=== PATIENT | female | born 1960 | race Caucasian/White ===

== ENCOUNTER 2020-07-01 11:27 | Day surgery (SDC) | payer MEDICARE, MEDICAID, SELFPAY ==
[2020-06-25 16:22] VITALS: BMI 24.1
--- NOTE | 2020-06-30 09:37 | HO.ANESPROP2 ---
Documented by User: Lori Rosey 06/30/20 09:57 HPI - Anesthesia Eval Consult details Narrative: 59yo F for Colonoscopy PMFSH Past Medical History Medical History Agoraphobia Anxiety Asthma Bipolar 1 disorder, depressed Constipation COPD (chronic obstructive pulmonary disease) DDD (degenerative disc disease), cervical DDD (degenerative disc disease), thoracic GERD (gastroesophageal reflux disease) Hiatal hernia HTN (hypertension) Hx of hepatitis C Mild aortic regurgitation Smoker Surgical History Surgical History History of ankle surgery History of breast augmentation History of cardiac cath History of esophagogastroduodenoscopy (EGD) Hx of colonoscopy Hx of hysterectomy Social History Social History Are you a primary healthcare science specialist to a significant other at home: No Do you presently have visiting nurse or other home services: No Smoking Status: Heavy tobacco smoker Packs Per Day: 1.5 Cigarettes Per Day: 30.0 Years Smoked: 44 Smoked in Last 30 Days: Yes Patient Interested in Nicotine Replacement: Yes Patient Given Instructions on How to Stop Smoking: Yes Date Education Initiated: 06/25/20 Use of substances other than those prescribed or required for medical reasons: No Have you been hit, kicked, punched, or otherwise hurt by someone within the past year? If so, by whom?: No Advance Directives: No Advance Directives Information Provided: No Advance Directives on File: No Recently lost weight without trying: No Meds Allergies Allergy/AdvReac Type Severity Reaction Status Date / Time baclofen [BACLOFEN] Allergy Unknown felt Verified 07/01/20 11:43 wierd Did not work morphine [MORPHINE] Allergy Unknown THROAT Verified 07/01/20 11:44 CLOSES, anaphylaxis hydrocodone [From VICODIN] AdvReac Unknown N/V, Verified 07/01/20 11:44 palpitations Home Medications Medication Instructions Recorded Confirmed Type albuterol sulfate 1 vial INHALATION Q6H 06/25/20 06/25/20 History albuterol sulfate [Ventolin HFA] 2 puff PO Q4-6H PRN 06/25/20 06/25/20 History amlodipine 1 tab PO DAILY 06/25/20 06/25/20 History aspirin 1 tab PO DAILY 06/25/20 06/25/20 History carisoprodol 1 tab PO TID 06/25/20 06/25/20 History clonazepam 1 tab PO BID PRN 06/25/20 06/25/20 History desvenlafaxine succinate 1 tab PO DAILY 06/25/20 06/25/20 History docusate sodium [Dulcolax Stool 100 mg PO DAILY PRN 06/25/20 06/25/20 History Softener (dss)] fexofenadine 1 tab PO DAILY 06/25/20 06/25/20 History fluticasone propion-salmeterol 1 puff PO 06/25/20 History [Advair HFA] fluticasone propionate [Flovent 1 puff PO BID 06/25/20 06/25/20 History HFA] lamotrigine 1 tab PO BID 06/25/20 07/01/20 History montelukast 1 tab PO BEDTIME 06/25/20 06/25/20 History wuidvffm-tbb-rutb-FA-lutein 1 tab PO DAILY 06/25/20 06/25/20 History [Centrum Silver Women] nicotine (polacrilex) mg PO 06/25/20 History omeprazole 1 cap PO BID 06/25/20 06/25/20 History oxycodone 1 tab PO BID PRN 06/25/20 06/25/20 History pramipexole 1 tab PO TID PRN 06/25/20 06/25/20 History quetiapine [Seroquel] 25 mg PO DAILY PRN 06/25/20 06/25/20 History topiramate 2 tab PO BEDTIME 06/25/20 06/25/20 History trazodone 1 tab PO BEDTIME 06/25/20 06/25/20 History Exam Exam Date and Time: June 30, 2020 0937 Height,Weight and Vital Signs: Height 5 ft 5 in Weight 65.771 kg Narrative Narrative: EKG 2018: NSR ECHO 02/2020: nml, mild AR Assessment and Plan Assessment Anesthesia Assessment: Chart Reviewed Documented by User: Ayala Carrasco 07/01/20 12:12 [facility] Past Medical History Medical History Agoraphobia Anxiety Asthma Bipolar 1 disorder, depressed Constipation COPD (chronic obstructive pulmonary disease) DDD (degenerative disc disease), cervical DDD (degenerative disc disease), thoracic GERD (gastroesophageal reflux disease) Hiatal hernia HTN (hypertension) Hx of hepatitis C Mild aortic regurgitation Smoker Surgical History Surgical History History of ankle surgery History of breast augmentation History of cardiac cath History of esophagogastroduodenoscopy (EGD) Hx of colonoscopy Hx of hysterectomy Social History Social History Are you a primary healthcare science specialist to a significant other at home: No Do you presently have visiting nurse or other home services: No Smoking Status: Heavy tobacco smoker Packs Per Day: 1.5 Cigarettes Per Day: 30.0 Years Smoked: 44 Smoked in Last 30 Days: Yes Patient Interested in Nicotine Replacement: Yes Patient Given Instructions on How to Stop Smoking: Yes Date Education Initiated: 06/25/20 Use of substances other than those prescribed or required for medical reasons: No Have you been hit, kicked, punched, or otherwise hurt by someone within the past year? If so, by whom?: No Advance Directives: No Advance Directives Information Provided: No Advance Directives on File: No Recently lost weight without trying: No Meds Allergies Allergy/AdvReac Type Severity Reaction Status Date / Time baclofen [BACLOFEN] Allergy Unknown felt Verified 07/01/20 11:43 wierd Did not work morphine [MORPHINE] Allergy Unknown THROAT Verified 07/01/20 11:44 CLOSES, anaphylaxis hydrocodone [From VICODIN] AdvReac Unknown N/V, Verified 07/01/20 11:44 palpitations Home Medications Medication Instructions Recorded Confirmed Type albuterol sulfate 1 vial INHALATION Q6H 06/25/20 06/25/20 History albuterol sulfate [Ventolin HFA] 2 puff PO Q4-6H PRN 06/25/20 06/25/20 History amlodipine 1 tab PO DAILY 06/25/20 06/25/20 History aspirin 1 tab PO DAILY 06/25/20 06/25/20 History carisoprodol 1 tab PO TID 06/25/20 06/25/20 History clonazepam 1 tab PO BID PRN 06/25/20 06/25/20 History desvenlafaxine succinate 1 tab PO DAILY 06/25/20 06/25/20 History docusate sodium [Dulcolax Stool 100 mg PO DAILY PRN 06/25/20 06/25/20 History Softener (dss)] fexofenadine 1 tab PO DAILY 06/25/20 06/25/20 History fluticasone propion-salmeterol 1 puff PO 06/25/20 History [Advair HFA] fluticasone propionate [Flovent 1 puff PO BID 06/25/20 06/25/20 History HFA] lamotrigine 1 tab PO BID 06/25/20 07/01/20 History montelukast 1 tab PO BEDTIME 06/25/20 06/25/20 History aiwhugfm-pyg-dyib-FA-lutein 1 tab PO DAILY 06/25/20 06/25/20 History [Centrum Silver Women] nicotine (polacrilex) mg PO 06/25/20 History omeprazole 1 cap PO BID 06/25/20 06/25/20 History oxycodone 1 tab PO BID PRN 06/25/20 06/25/20 History pramipexole 1 tab PO TID PRN 06/25/20 06/25/20 History quetiapine [Seroquel] 25 mg PO DAILY PRN 06/25/20 06/25/20 History topiramate 2 tab PO BEDTIME 06/25/20 06/25/20 History trazodone 1 tab PO BEDTIME 06/25/20 06/25/20 History Exam Airway Mallampati Class: I TM Dist: >3cm Heart: RRR Lungs: CTA BL Assessment and Plan Assessment Anesthesia Assessment: Anesthesia Plan Discussed and Chart Reviewed Final Anesthetic Review NPO: Yes ASA Class: II Final Preanesthetic Review: No Changes in Pt Med Stat and Consent Obtained/Reviewed Patient Risk: Intermediate Procedure Risk: Intermediate Anesthetic Plan Anesthetic Plan: MAC: Disposition: Standard PACU
[2020-07-01 11:50] VITALS: BP 116/81; PULSE 68; RESP 16; TEMP 36.2; O2SAT 97
--- NOTE | 2020-07-01 12:05 | PC.NURSE ---
patient had a bm and nothing noted in toilet. clear. md horn aware. no need for a fleet enema.
--- NOTE | 2020-07-01 12:08 | MHC.SHP ---
Pre-Procedural Eval Section B Chief Complaint: SCREENING Details of Present Illness: Colon cancer screening Has seen Flight Communications Officer this summer --ECHO-no changes Continues to smoke 1-2 ppd Relevant Family History (Specify if Yes): No Relevant Social History: Tobacco Use (1.5 ppd) Present Medications: see Short Stay Collaborative assessment Medical History: Significant History (COPD/asthma, chronic bronchitis,GERD, Bipolar disorder) History of Previous Operations: Relevant previous surgery/procedure and date(s) (Colonoscopy--tubular adenoma.) Allergies: Allergies Allergy/AdvReac Type Severity Reaction Status Date / Time baclofen [BACLOFEN] Allergy Unknown felt Verified 07/01/20 11:43 wierd Did not work morphine [MORPHINE] Allergy Unknown THROAT Verified 07/01/20 11:44 CLOSES, anaphylaxis hydrocodone [From VICODIN] AdvReac Unknown N/V, Verified 07/01/20 11:44 palpitations Review of Systems Sugical H&P ROS: Negative: Constitution and Gastrointestinal and Yes, Specify: Cardiovascular (stable heart valve-md analilia), Respiratory (sligh prod cough) and Psychiatric (hx bipolar disorder on meds.) Exam Surgical H&P Exam: Normal: HEENT, Normal: Heart, Normal: Abdomen and Normal: Skin and Significant Findings: Lungs (bronchitic cough) Plan Diagnosis/Plan: Unchanged Patient has been examined and remains a candidate for the planned procedure YES
[2020-07-01] MEDS: Lactated Ringers 1,000 ML 100 ML IVCONT (12:11)
--- NOTE | 2020-07-01 12:40 | PM.PROC ---
Brief Operative Note Date of procedure: 07/01/20 Pre-op diagnosis: Colon cancer screening Post-op diagnosis: other (hx of tubular adenomas, melanosis coli) Procedure: Colonoscopy Anesthesia: MAC (Irving Tomlin CRNA) Surgeon: Kristina Robledo Estimated blood loss (mL): 0 Pathology: none sent Condition: stable Disposition: PACU
[2020-07-01 12:43] VITALS: BP 91/49; PULSE 52; RESP 12; TEMP 36.1; O2SAT 96
[2020-07-01 12:58] VITALS: BP 94/54; PULSE 60; RESP 18; O2SAT 99
--- NOTE | 2020-07-01 13:18 | PC.NURSE ---
1300 REQ TO USE BR STS FEEL GREAT MONITORS AND IVF DC'D TOTAL IN IS 350 ML LR, ASST OOB STEADY TO BR, RETURN TO PACU 13 STEADY IV DC'D TIP INTACT PRESSURE AND DRESSING TO SITE, DRESSED SELF AT BS CALL ZHAO IN REACH
--- NOTE | 2020-07-01 13:59 | OP_ITS ---
SURGEON: Kristina Robledo MD PREOPERATIVE DIAGNOSIS: History of tubular adenomas. POSTOPERATIVE DIAGNOSIS: Negative exam, presence of melanosis coli noted, history of tubular adenomas. PROCEDURE PERFORMED: Colonoscopy. ESTIMATED BLOOD LOSS: No blood loss. COMPLICATIONS: No complications. ANESTHESIA: Monitored. ANESTHESIOLOGIST: Irving Tomlin CRNA. ASSISTANTS: No lpn medical assistant. SPECIMENS: No specimens removed. PRIMARY CARE PROVIDER: Dr. Posadas CLIENT RELATIONSHIP CONSULTANT: Dr. Robledo. CONDITION: Postprocedure, stable. FINDINGS: Digital rectal exam revealed sphincter tone to be adequate. Video colonoscope was introduced without difficulty. It was navigated into the rectosigmoid. There were scattered white fragments of knots, which on further investigation appear to be a threads of pecan throughout the colon. There was residual turbid fluid as well that was present making exam of certain areas somewhat tedious. Scope was slowly advanced through mildly redundant left colon and up through transverse, ascending colon down into the cecum. Appendiceal orifice was seen. Ileocecal valve was seen. No mucosal abnormalities were appreciated. Slow withdrawal of the scope. Good rotational views. In various sliding, there was presence of melanosis coli noted. As we pulled through the left colon, there was some tedious areas requiring some flushing and suctioning due to the turbidity of the residue ultimately down to the anorectal verge. PLAN: Current recommendations to repeat asymptomatic screening in this patient will be 5 years. The patient should be reminded at that time to have no knots for the week prior to the procedure. Consideration to a 2-day prep with the day prior to the preparation, the patient is being given either 2 Dulcolax tabs to use or several doses of MiraLAX and then the formal prep with clear liquids on the day prior to the procedure. GRAFT OR IMPLANTS: No grafts or implants. Kristina Robledo MD MEN/MODL / [id number] MTDD
== END 2020-07-01 13:38 | disposition home or self-care (01) ==
PROVIDERS: PCP Internal Medicine; Visit Provider Internal Medicine Gastroenterology
PROC: 0DJD8ZZ Inspection of Lower Intestinal Tract, Via Natural or Artificial Opening Endoscopic (ICD-10-PCS; CPT 45378; principal; 2020-07-01 12:30)
DX: Z12.11 Encounter for screening for malignant neoplasm of colon (principal); Z86.010 Personal history of colon polyps; K63.89 Other specified diseases of intestine; K21.9 Gastro-esophageal reflux disease without esophagitis; I10 Essential (primary) hypertension; J44.9 Chronic obstructive pulmonary disease, unspecified; I35.1 Nonrheumatic aortic (valve) insufficiency; F17.210 Nicotine dependence, cigarettes, uncomplicated; F31.9 Bipolar disorder, unspecified; Z88.8 Allergy status to other drugs, medicaments and biological substances; Z79.51 Long term (current) use of inhaled steroids; Z79.82 Long term (current) use of aspirin; Z79.899 Other long term (current) drug therapy; Z86.19 Personal history of other infectious and parasitic diseases
CPT/HCPCS: G0105

== ENCOUNTER 2020-10-29 10:44 | Outpatient (REF) | payer MEDICARE, MEDICAID, SELFPAY ==
--- NOTE | ~2020-10-29 | MM_ITS ---
EXAMINATION: BONE DENSITOMETRY CLINICAL INDICATION: Screening for osteoporosis. COMPARISON: Baseline BD dated 08/05/2017. TECHNIQUE: Using a [employer] DXA System (software version: 13.1) manufactured by [employer], dual-energy x-ray absorptiometry was performed of the lumbar spine and left hip. The images are of good technical quality. Summary results are attached. FINDINGS: AP SPINE L1-L4: Current: BMD 0.933 g/cm2, Z-score -1.0, T-score -2.1, osteopenia, 4.0% decrease from baseline (<5% change is not significant). Baseline: BMD 0.972 g/cm2. LEFT FEMUR, NECK: Current: BMD 0.836 g/cm2, Z-score -0.3, T-score -1.5, osteopenia. Baseline: BMD 0.874 g/cm2. LEFT FEMUR, TOTAL: Current: BMD 0.899 g/cm2, Z-score 0.0, T-score -0.9, normal, 3.2% decrease from baseline (<5% change is not significant). Baseline: BMD 0.929 g/cm2. IDENTIFIED RISK FACTORS: Low calcium intake, history of fracture (adult). Early menopause, secondary osteoporosis, kidney disease, tobacco use (current smoker), hysterectomy. HISTORY OF FRACTURE: Lower leg fracture. No insufficiency fracture reported. MEDICATIONS: Calcium supplements or multivitamin, vitamin D. MM/XR DEXA axial skeleton IMPRESSION: 1. DIAGNOSIS: Osteopenia based on the lowest T-score value of -2.1 in the lumbar spine applying World Health Organization criteria. 2. 10-YEAR FRACTURE RISK PREDICTION, FRAX: Major osteoporotic fracture (clinical spine, forearm, hip or shoulder) 13.4%. Hip fracture 2.0%. 3. Treatment Recommendations: NOF guidelines recommend consideration for treatment in postmenopausal women and men age 50 and older presenting with the following: -A hip or vertebral (clinical or morphometric) fracture. -T-score less than or equal to -2.5 at the femoral neck or spine after appropriate evaluation to exclude secondary causes. -Low bone mass at the hip or spine and a 10-year fracture probability by FRAX of greater than or equal to 3% for hip fracture or greater than or equal to 20% for major osteoporotic fracture based on the [place] adapted WHO algorithm. 4. Other Recommendations: All treatment decisions require clinical judgment and consideration of individual patient factors, including patient preferences, comorbidities, previous drug use, risk factors not captured in the FRAX model (e.g. frailty, falls, vitamin D deficiency, increased bone turnover, interval significant decline in bone density) and possible under or overestimation of fracture risk by FRAX. Additional medical evaluation for secondary cause of low bone mineral density may be appropriate. FUTURE SCAN RECOMMENDATION: People with diagnosed cases of osteoporosis or at high risk for fracture should have regular bone mineral density tests. For patients eligible for Medicare, routine testing is allowed once every 2 years. The testing frequency can be increased to one year for patients who have rapidly progressing disease, those who are receiving or discontinuing medical therapy to restore bone mass, or have additional risk factors.
== END 2020-10-29 10:45 | disposition home or self-care (01) ==
LOC: HO.MAMMO 10:44
PROVIDERS: PCP Advanced Practice Midwife; Visit Provider Advanced Practice Midwife
DX: Z13.820 Encounter for screening for osteoporosis (principal); M85.89 Other specified disorders of bone density and structure, multiple sites; Z78.0 Asymptomatic menopausal state; Z90.710 Acquired absence of both cervix and uterus
CPT/HCPCS: 77080

== ENCOUNTER → 2020-11-13 07:59 | Outpatient (REF) | payer MEDICARE, MEDICAID, SELFPAY ==
--- NOTE | ~2020-11-13 | NM_ITS ---
Lexiscan Myocardial perfusion study Indication: Shortness of breath, abnormal EKG, assess for coronary disease and ischemia Technique: The patient was brought in for a Lexiscan perfusion study on 11/13/2020 and was injected 0.4 mg of Lexiscan intravenously. Within a minute of this injection 25 mCi of sestamibi was given intravenously. Images were obtained using the SPECT gamma camera interlaced with the gating device. Images were obtained in supine position. Resting perfusion study was performed on 11/14/2020. Patient was administered 25 mCi of sestamibi intravenously at rest. Images were then obtained in supine position. Total DLP 101mGy-cm. Images were processed with the software and compared side to side in short axis, horizontal long axis and vertical long axis views. Findings: Raw acquisition was reviewed. Arms by the patient's side. The stress perfusion study showed slightly diminished tracer uptake in the mid to distal anterolateral wall. With CT attenuation correction this improves significantly suggestive of soft tissue attenuation artifact. The gated study shows normal LV systolic function with calculated LVEF of 62%. LV cavity is normal in size. The gated study shows normal wall thickening and contraction of segments. Resting study shows mildly diminished tracer uptake in the basal inferior septum. Likely artifactual as there is adjacent bowel tracer uptake. There is no significant change with CT attenuation correction however. Gating at rest reveals normal wall motion with ejection fraction at 72%. The findings are consistent with no definite reversible or fixed perfusion defects. NM/NM donny perf SPECT rest & str Impression: 1. Myocardial perfusion imaging study shows no definite evidence of any ischemia or infarction. 2. Gated LVEF is 62% during stress and 72% during rest. 3. Transient ischemic dilatation not present. EKG component of the test reported separately.
--- NOTE | 2020-11-13 08:00 | CA_ITS ---
Acquisition Time: 2020-11-13 08:13:24 Total Exercise Time: 00:02:00 Test Indications: Dyspnea Medications: SEE H Protocol: LEXISCAN Max HR: 110 BPM 68% of Pred: 161 BPM Max BP: 128/074 mmHG Max Work Load: 1.0 METS Pharmacological stress test using Lexiscan while sitting and kicking her feet. Pt denies any anginal sx. C/o headache from Lexiscan, sx reversed with Aminophyline 75 mg IV. EKG with isolated PAC's, non-diagnostic for ischemia. Nuclear images to follow. Normotensive response to test. Test reviewed with Dr. Fermin. Referred By: Boy Anderson Overread By: Conchis Gordon NP
== END ==
LOC: HO.CARD 07:59
PROVIDERS: Visit Provider Internal Medicine Cardiovascular Disease
DX: R06.02 Shortness of breath (principal); R94.31 Abnormal electrocardiogram [ECG] [EKG]
CPT/HCPCS: 78452; 93017; A9500; J0280; J2785

== ENCOUNTER 2020-12-13 08:55 | Outpatient (REF) | payer MEDICARE, MEDICAID, SELFPAY ==
--- NOTE | ~2020-12-13 | MM_ITS ---
EXAMINATION: MM SCREENING DIGITAL BREAST TOMOSYNTHESIS, BILATERAL CLINICAL INFORMATION: Screening exam performed on Tuesday screening. At time of exam, patient notes palpable lesion anterior right breast. No discharge. No known family history breast cancer. The lifetime risk of breast cancer based on the Tyrer-Cuzick Model is 8%. COMPARISON: Mammography: 08/05/2017; outside exams 12/26/2014, 11/29/2013, 11/16/2012, 09/01/2012 ([facility]). TECHNIQUE: Digital mammography is performed in craniocaudal and mediolateral oblique views along with computer-aided detection (CAD). Digital breast tomosynthesis is performed in implant-displaced craniocaudal and implant-displaced mediolateral oblique views along with computer-aided detection (CAD). Synthesized 2D images are generated from the tomosynthesis. Symptom marker placed at site of concern right breast FINDINGS: There are scattered areas of fibroglandular density (ACR BI-RADS breast composition Category b). Breast tissue composition borders on heterogeneously dense in the upper outer quadrants. The implant contours are smooth and similar to prior studies. The left breast shows no mass or developing density or architectural abnormality. Neither breast shows abnormal calcifications. The axilla and skin contours are unremarkable. There is an oval nodule anterior 3:00 right breast approximately 0.7 x 0.5 cm representing new finding from prior exam. This corresponds to the symptom marker, palpable area of concern noted at time of screening appointment. There is a small intramammary node again suggested posterior 11:00 right breast. Remainder of right breast is unremarkable. MM/MM tomosynthesis screen imp BI IMPRESSION: 1. Right: New oval nodule anterior 3:00 position corresponding to palpable area of concern. 2. Left: No mammographic evidence of malignancy. ASSESSMENT: BI-RADS 0: Incomplete - Need Additional Imaging Evaluation RECOMMENDATION: 1. Targeted ultrasound right breast. 2. Radiology department staff will contact the patient for additional imaging. This patient's information was entered into a reminder system with a target due date for their next mammogram.
== END 2020-12-13 08:56 | disposition home or self-care (01) ==
LOC: HO.MAMMO 08:55
PROVIDERS: PCP Internal Medicine; Visit Provider Internal Medicine
DX: Z12.31 Encounter for screening mammogram for malignant neoplasm of breast (principal)
CPT/HCPCS: 77062; 77063; 77066; 77067

== ENCOUNTER 2020-12-15 08:59 | Outpatient (REF) | payer MEDICARE, MEDICAID, SELFPAY ==
--- NOTE | ~2020-12-15 | US_ITS ---
EXAMINATION: US DIAGNOSTIC ULTRASOUND BREAST, RIGHT CLINICAL INFORMATION: Recall from screening for new oval nodule anterior breast, also palpable by patient. COMPARISON: Mammography 12/13/2020, 08/05/2017; outside exams 12/26/2014, 11/29/2013, 11/16/2012, 09/01/2012 ([facility]). TECHNIQUE: Ultrasound right breast is targeted to the 10:00 through 5:00 position. Grayscale imaging and color Doppler are performed without and with harmonics. FINDINGS: There is a hypoechoic nodule at site of palpable concern 2:00 position 2 cm from nipple measuring 0.5 x 0.4 cm. There is a surrounding collar of increased echogenicity. There is no increased through-transmission of sound. There is an underlying implant. There is no associated color flow. No other cystic or solid masses or architectural abnormality demonstrated. The small intramammary node noted on mammography is not visible on ultrasound. Results are discussed with the patient at time of visit. Patient does not recall any prior history of trauma or ecchymosis right breast. The finding is new from prior mammography 2016 and also noted is recently palpable by the patient. Ultrasound-guided core sampling is recommended. US/US breast RT limited IMPRESSION: Hypoechoic nodule 2:00 position under 1 cm corresponding to finding on mammography and area of palpable concern. ASSESSMENT: BI-RADS 4: Suspicious RECOMMENDATION: Ultrasound-guided core biopsy right breast nodule. This patient's information was entered into a reminder system with a target due date for their next mammogram.
== END 2020-12-15 09:00 | disposition home or self-care (01) ==
LOC: HO.MAMMO 08:59
PROVIDERS: PCP Internal Medicine; Visit Provider Internal Medicine
DX: N63.12 Unspecified lump in the right breast, upper inner quadrant (principal)
CPT/HCPCS: 76642

== ENCOUNTER 2020-12-21 12:06 | Emergency (ER) | payer MEDICARE, MEDICAID, SELFPAY ==
[2020-12-21 12:20] VITALS: BP 144/84; PULSE 98; RESP 20; TEMP 36.6; O2SAT 96; BMI 25.7
[2020-12-21] MEDS: Lidocaine HCl 1 % MPF 5 ML VIAL SUBCUT (13:41)
--- NOTE | 2020-12-21 13:43 | PC.NURSE ---
PT HAD A TETANUS SHOT 03/09
--- NOTE | 2020-12-21 13:55 | ED_ITS ---
HPI - Wound/Laceration General Chief Complaint: Wound/Laceration Stated Complaint: finger lac Time Seen by Provider: 12/21/20 13:30 Source: patient Mode of arrival: ambulatory Limitations: no limitations History of Present Illness HPI narrative: 60-year-old female presenting to the ED with a laceration to her left pointer finger where she cut it on a blade while cutting fabric prior to arrival. Reports that her tetanus was up-to-date she last received in 2019. Denies any other injuries complaints or concerns at this time. Place: home Patient tetanus UTD: Yes Context: accidental Associated symptoms: pain Related Data Home Medications Medication Instructions Recorded Confirmed Advair HFA 1 puff PO 06/25/20 Centrum Silver Women 1 tab PO DAILY 06/25/20 06/25/20 Flovent HFA 1 puff PO BID 06/25/20 06/25/20 albuterol sulfate 1 vial INHALATION Q6H 06/25/20 06/25/20 albuterol sulfate [Ventolin HFA] 2 puff PO Q4-6H PRN 06/25/20 06/25/20 amlodipine 1 tab PO DAILY 06/25/20 06/25/20 aspirin 1 tab PO DAILY 06/25/20 06/25/20 carisoprodol 1 tab PO TID 06/25/20 06/25/20 clonazepam 1 tab PO BID PRN 06/25/20 06/25/20 desvenlafaxine succinate 1 tab PO DAILY 06/25/20 06/25/20 docusate sodium [Dulcolax Stool 100 mg PO DAILY PRN 06/25/20 06/25/20 Softener (dss)] fexofenadine 1 tab PO DAILY 06/25/20 06/25/20 lamotrigine 1 tab PO BID 06/25/20 07/01/20 montelukast 1 tab PO BEDTIME 06/25/20 06/25/20 nicotine (polacrilex) mg PO 06/25/20 omeprazole 1 cap PO BID 06/25/20 06/25/20 oxycodone 1 tab PO BID PRN 06/25/20 06/25/20 pramipexole 1 tab PO TID PRN 06/25/20 06/25/20 quetiapine [Seroquel] 25 mg PO DAILY PRN 06/25/20 06/25/20 topiramate 2 tab PO BEDTIME 06/25/20 06/25/20 trazodone 1 tab PO BEDTIME 06/25/20 06/25/20 Previous Rx's Medication Instructions Recorded acetaminophen [Tylenol Extra 1,000 mg PO QID PRN #14 tab 12/21/20 Strength] cephalexin 500 mg PO BID 10 Days #20 cap 12/21/20 doxycycline monohydrate 100 mg PO BID 10 Days #20 cap 12/21/20 Allergies Allergy/AdvReac Type Severity Reaction Status Date / Time baclofen [BACLOFEN] Allergy Unknown felt Verified 07/01/20 11:43 wierd Did not work morphine [MORPHINE] Allergy Unknown THROAT Verified 07/01/20 11:44 CLOSES, anaphylaxis hydrocodone [From VICODIN] AdvReac Unknown N/V, Verified 07/01/20 11:44 palpitations Review of Systems Review of Systems: Constitutional : No Fever, No Chills, Cardiovascular : No Chest Pain, No SOB Respiratory : No Dyspnea Gastrointestinal : No abdominal pain Musculoskeletal : No Joint Swelling Skin : positive skin laceration, No Foreign bodies, No rash, No surrounding erythema Neuro : No Weakness, No Numbness/tingling Psych : No SI/HI/thoughts of self injury Yes all other systems are reviewed and are negative FOR[facility]LY [facility] Past Medical History Attestation statement: The following information was validated with the patient. Medical History Agoraphobia Anxiety Asthma Bipolar 1 disorder, depressed Constipation COPD (chronic obstructive pulmonary disease) DDD (degenerative disc disease), cervical DDD (degenerative disc disease), thoracic GERD (gastroesophageal reflux disease) Hiatal hernia HTN (hypertension) Hx of hepatitis C Mild aortic regurgitation Smoker Surgical History History of ankle surgery History of breast augmentation History of cardiac cath History of esophagogastroduodenoscopy (EGD) Hx of colonoscopy Hx of hysterectomy Social History Social History Smoking Status: Heavy tobacco smoker Packs Per Day: 1.5 Cigarettes Per Day: 30.0 Years Smoked: 44 Advance Directives: No Advance Directives Information Provided: No Physical Exam Vital Signs: Vital Signs: Last Vital Signs Temp 97.8 F 12/21/20 12:20 Pulse 98 12/21/20 12:20 Resp 20 12/21/20 12:20 BP 144/84 H 12/21/20 12:20 Pulse Ox 96 12/21/20 12:20 Body Mass Index 25.7 vital signs have been reviewed as normal and appeared to be correct. Blood pressure normal. Heart rate normal. Respiration rate normal. Temperature normal. Oxygen saturation normal. Appearance: Alert. Oriented X3. No acute distress. Head: Normal external exam. Normocephalic. Atraumatic. Eyes: PERRLA. EOMI. Conjunctiva and sclera normal. Eyelids normal. ENT: Pharynx normal. Uvula midline. Moist mucous membranes. Neck: Normal inspection. Neck supple. FROM. No adenopathy. No meningeal signs. CVS: Normal heart rate and rhythm. Heart sound normal. No murmurs noted. Pulses normal throughout. Respiratory: No respiratory distress. Painless inspiration. Breath sounds normal. No wheezes/rales/rhonchi noted. Chest nontender. No accessory muscle usage noted or decreased air movement noted. Back: Full range of motion noted. Skin: Skin warm and dry. Normal skin color. Normal skin turgor. Flap laceration to left pointer finger bleeding is controlled. No foreign bodies or signs of infection noted. No rashes/lesions noted. Extremities: Extremities exhibit normal range of motion. Extremities nontender. Neuro: Oriented X 3. No motor deficit. No sensory deficit. Reflexes normal. Course Course Course Narrative: Patient is status post laceration repair with [address] Patient tolerated procedure well. No complications. Tetanus is up-to-date. No imaging indicated at this time. Will DC home with antibiotics and symptomatic treatment instructions to return in 10 days for suture removal and to follow up with primary care provider. Patient understands agrees with this plan. Procedures Laceration Laceration 1: Site: hand (Index finger) Side (If applicable): left Size (cm): 2 Description: flap Depth: simple, single layer Local Anesthetic: lidocaine 1% Amount of anesthesia used (mL): 3 Pre-repair: wound explored, irrigated extensively and deep structures intact Skin layer closed with: nylon Size (cm): 4-0 Number of sutures: 7 Technique: simple, interrupted MDM - Wound/Laceration Medical Records Attestation: I reviewed the patient's medical records. Discharge Plan Discharge Clinical Impression: Laceration Patient Disposition: Home, Self-Care Instructions: Finger Laceration (ED) Prescriptions: New cephalexin 500 mg capsule 500 mg PO BID 10 Days Qty: 20 RF: 0 doxycycline monohydrate 100 mg capsule 100 mg PO BID 10 Days Qty: 20 RF: 0 acetaminophen [Tylenol Extra Strength] 500 mg tablet 1,000 mg PO QID PRN (Reason: fever or pain) Qty: 14 RF: 0 No Action carisoprodol 350 mg tablet 1 tab PO TID RF: 0 albuterol sulfate 2.5 mg /3 mL (0.083 %) solution for nebulization 1 vial inhalation Q6H RF: 0 clonazepam 0.5 mg tablet 1 tab PO BID PRN (Reason: anxiety) RF: 0 fexofenadine 180 mg tablet 1 tab PO DAILY RF: 0 aspirin 81 mg tablet,delayed release (DR/EC) 1 tab PO DAILY RF: 0 pramipexole 0.5 mg tablet 1 tab PO TID PRN (Reason: Restless Leg(S)) RF: 0 nicotine (polacrilex) 4 mg gum PO RF: 0 amlodipine 10 mg tablet 1 tab PO DAILY RF: 0 trazodone 150 mg tablet 1 tab PO BEDTIME RF: 0 omeprazole 20 mg capsule,delayed release(DR/EC) 1 cap PO BID RF: 0 montelukast 10 mg tablet 1 tab PO BEDTIME RF: 0 Flovent HFA 220 mcg/actuation HFA aerosol inhaler 1 puff PO BID RF: 0 albuterol sulfate [Ventolin HFA] 90 mcg/actuation HFA aerosol inhaler 2 puff PO Q4-6H PRN (Reason: Wheezing) RF: 0 lamotrigine 100 mg tablet 1 tab PO BID RF: 0 oxycodone 5 mg tablet 1 tab PO BID PRN (Reason: pain) RF: 0 topiramate 50 mg tablet 2 tab PO BEDTIME RF: 0 Advair HFA 230-21 mcg/actuation HFA aerosol inhaler 1 puff PO RF: 0 desvenlafaxine succinate 25 mg tablet extended release 24 hr 1 tab PO DAILY RF: 0 quetiapine [Seroquel] 25 mg Tablet 25 mg PO DAILY PRN (Reason: Anxiety) RF: 0 docusate sodium [Dulcolax Stool Softener (dss)] 100 mg Capsule 100 mg PO DAILY PRN (Reason: Constipation) RF: 0 Centrum Silver Women 8 mg iron-400 mcg-300 mcg Tablet 1 tab PO DAILY RF: 0 Referrals: Radha Rutledge PA [Emergency Midlevel Provider] - 10 days (For suture removal) Print Language: Czech
== END 2020-12-21 14:05 | disposition home or self-care (01) ==
PROVIDERS: Emergency Provider Emergency Medicine; PCP Internal Medicine
DX: S61.211A Laceration without foreign body of left index finger without damage to nail, initial encounter (principal); W26.8XXA Contact with other sharp object(s), not elsewhere classified, initial encounter; F17.210 Nicotine dependence, cigarettes, uncomplicated; Y93.9 Activity, unspecified; Y92.019 Unspecified place in single-family (private) house as the place of occurrence of the external cause; Y99.9 Unspecified external cause status
CPT/HCPCS: 12001; 99283; 99284

== ENCOUNTER → 2020-12-22 08:33 | Outpatient (BNVA) | payer MEDICARE, MEDICAID, SELFPAY | PROVIDERS: PCP Internal Medicine; Visit Provider Surgery | DX: R92.8 Other abnormal and inconclusive findings on diagnostic imaging of breast (principal) | CPT/HCPCS: 99202 ==

== ENCOUNTER 2020-12-23 08:34 | Outpatient (REF) | payer MEDICARE, MEDICAID, SELFPAY ==
--- NOTE | ~2020-12-23 | MM_ITS ---
EXAMINATION: ULTRASOUND GUIDED CORE BIOPSY BREAST, RIGHT POST PROCEDURE DIGITAL MAMMOGRAM, RIGHT CLINICAL INFORMATION: New palpable nodule anterior 2:00 right breast consistent with 5 x 4 mm hypoechoic nodule with surrounding hyperechoic rim on ultrasound. Bilateral implants. COMPARISON: Targeted right breast ultrasound 12/15/2020, mammography 12/13/2020, 08/06/2017. FINDINGS: Proper informed consent is obtained from the patient after discussion of the procedure, potential risks and complications, and alternatives. Patient was given an opportunity for questions. The patient appeared to understand. The patient consented to the procedure and signed the consent form. GUIDANCE: Ultrasound-guided; aseptic technique. LESION: 5 x 4 mm hypoechoic nodule with hyperechoic rim, complicated cyst, fat necrosis, or other. APPROACH: Oblique caudal cranial. ANESTHESIA: 14 mL 1% lidocaine. Some of the lidocaine is deposited between the implant and the nodule to elevate the lesion away from the implant. DERMATOTOMY: Single skin trevor dermatotomy performed. NEEDLE: 14-gauge Achieve core biopsy device with 13.5-gauge co-axial guide needle. CORES: 3. The lesion is not well visualized after the 3rd pass. CLIP: HydroMARK; shape: open coil. POST PROCEDURE UNILATERAL DIGITAL MAMMOGRAM: The post biopsy mammogram is performed in separate room using separate digital mammography equipment from the biopsy procedure. CC and ML views are obtained. There are scattered areas of fibroglandular density (breast composition category: b). The clip marker is in position. No gross hematoma. The patient tolerated the procedure well. No immediate complications. Home instructions reviewed with the patient. Final pathology results are pending. MM/MM diagnostic mammo implant RT IMPRESSION: 1. Status post ultrasound-guided core biopsy right breast. 2. Clip placed: HydroMARK; shape: open coil. 3. Pathology pending. An addendum report will be issued.
== END 2020-12-23 08:35 | disposition home or self-care (01) ==
LOC: HO.MAMMO 08:34
PROVIDERS: Visit Provider Surgery
DX: N63.12 Unspecified lump in the right breast, upper inner quadrant (principal)
CPT/HCPCS: 19083; 77065; 88305; A4648

== ENCOUNTER → 2020-12-29 11:04 | Outpatient (BNVA) | payer MEDICARE, MEDICAID, SELFPAY | PROVIDERS: PCP Internal Medicine; Visit Provider Surgery | DX: R92.8 Other abnormal and inconclusive findings on diagnostic imaging of breast (principal) | CPT/HCPCS: 99212 ==

== ENCOUNTER 2021-05-06 18:26 | Emergency (ER) | payer MEDICARE, MEDICAID, SELFPAY ==
--- NOTE | ~2021-05-06 | CT_ITS ---
EXAMINATION: CT ABDOMEN AND PELVIS WITH CONTRAST CLINICAL INFORMATION: Left lower quadrant pain COMPARISON: CT abdomen pelvis 12/31/2013 TECHNIQUE: Multidetector volumetric images were obtained from the superior aspect of the liver through the pubic symphysis following administration 85 mL of Omnipaque 350 intravenous contrast. Sagittal and coronal reformatted images were obtained on the technologist's workstation. Oral contrast: No This CT examination was performed using dose optimization techniques as appropriate, variously including the following: *Automated exposure control *Adjustment of mA and/or kV according to patient size (this includes techniques or standardized protocols for targeted exams where dose is matched to indication/reason for exam; i.e. extremities or head) *Use of iterative reconstruction technique DLP: 550 mGy-cm FINDINGS: LUNG BASES: The visualized lung bases are unremarkable. Bilateral breast implants are partially seen. A calcified granuloma present at the left lung base. LIVER, GALLBLADDER, AND BILIARY TREE: The liver is normal in size, shape, and attenuation. Tiny 4 mm indeterminate hypodensity seen in the right lobe of the liver (4:172). This was probably present on the 2013 CT scan but not as well seen (prior 4:14) No other focal hepatic lesion or biliary ductal dilatation is present. The gallbladder is contracted but otherwise unremarkable with no evidence of radiopaque gallstones, gallbladder wall thickening, or obvious pericholecystic inflammatory changes. PANCREAS: Unremarkable. SPLEEN: Unremarkable. ADRENAL GLANDS: Unremarkable. KIDNEYS AND URETERS: The kidneys are normal in size, shape, and attenuation. No hydronephrosis, hydroureter, or calculi seen. No perinephric stranding. Phleboliths are present adjacent to the left ureter but no ureteral stones are seen. BLADDER: Unremarkable. GASTROINTESTINAL TRACT: A redundant rectosigmoid is present. Moderate stool present throughout the colon. The small and large bowel are otherwise unremarkable without evidence of obstruction. The appendix is unremarkable. ABDOMINAL WALL: No significant hernia is appreciated. Tiny bilateral inguinal hernias are seen containing only fat. LYMPH NODES: No retroperitoneal lymphadenopathy. VASCULAR: Calcific atherosclerotic changes present in the aorta and common iliac arteries without aneurysm. The IVC is unremarkable. PELVIC VISCERA: Surgically absent OSSEOUS STRUCTURES: Unremarkable. CT/CT abdomen pelvis w con IMPRESSION: 1. An etiology for the patient's left lower quadrant pain has not been found. 2. Incidental findings as above including calcified pulmonary granuloma , a tiny indeterminate but stable hepatic hypodensity, tiny inguinal hernias and hysterectomy
[2021-05-06 19:00] VITALS: BP 142/84; PULSE 89; O2SAT 96
[2021-05-06 20:26] VITALS: BP 130/75; PULSE 71; RESP 17; TEMP 36.4; O2SAT 99; BMI 26.2
[2021-05-06 20:59] VITALS: BP 128/83; PULSE 56; RESP 18; TEMP 36.8; O2SAT 100
[2021-05-06 21:00] LABS: MANUAL DIFF FLAG NO
[2021-05-06 21:01] LABS: Appearance Urine CLEAR; Color Urine YELLOW; Glucose Urine UA NEG (NEG); Leukocyte Esterase Urine NEG (NEG); Nitrite Urine NEG (NEG); PH 5.5 (5.0-8.0); Specific Gravity - Urine 1.015 (1.005-1.025); UACC Culture Trigger NO; Urine Blood TRACE (NEG); Urine Ketones NEG (NEG); Urine Protein NEG (NEG-TRACE)
[2021-05-06 21:06] LABS: Basophils Percent Auto 0.3 % (0-2); Eosinophils Absolute Auto 0.1 X10*3/uL (0.0-0.4); Eosinophils Percent Auto 2.2 % (0-4); Hematocrit 40.1 % (37-47); Imm Gran Abs Auto 0.01 X10*3/uL (0.00-0.03); Imm Gran Pct Auto 0.2 % (0.0-0.4); Lymphocytes Absolute Auto 2.7 X10*3/uL (1.2-4.9); Lymphocytes Percent Auto 41.4 % (20-40); Mean Corpuscular HGB Conc 34.9 g/dl (31.0-35.0); Mean Corpuscular Volume 94.6 fL (80-98); Mean Platelet Volume 8.6 fL (9.4-12.3); Monocytes Absolute Auto 0.4 X10*3/uL (0.1-1.2); Monocytes Percent Auto 6.2 % (2-11); Neutrophils Absolute Auto 3.2 X10*3/uL (2.0-8.3); Neutrophils Percent Auto 49.7 % (45-73); Platelet Count 215 X10*3/uL (160-400); Red Blood Count 4.24 X10*6/uL (4.20-5.50); Red Cell Distribution Width 12.7 % (11.0-16.0); White Blood Count 6.5 X10*3/uL (4.8-10.8)
--- NOTE | 2021-05-06 21:08 | PC.NURSE ---
PA at bedside for primary eval.
[2021-05-06 21:11] LABS: Bacteria Urine TRACE /LPF; RBC Urine 0 /HPF (0); WBC Urine 0 /HPF (0-4)
[2021-05-06 21:16] LABS: Alanine Aminotransferase 20 U/L (0-31); Albumin Level 4.4 g/dL (3.5-5.0); Alkaline Phosphatase 90 U/L (39-117); Anion Gap 11 (12-20); Aspartate Amino Transferase 20 U/L (5-31); Bilirubin Total 0.4 mg/dL (0.0-1.0); Blood Urea Nitrogen 14 mg/dL (9-16); Calcium 9.4 mg/dL (8.4-10.2); Carbon Dioxide 27 mmol/L (22-29); Chloride 108 mmol/L (96-108); Creatinine Clr Calc Pharmacy 73.3; Estimated Glomerular Filt Rate > 60; Glucose Random 97 mg/dL (60-115); Potassium 3.5 mmol/L (3.3-5.1); Sodium 142 mmol/L (135-145); Total Protein 7.1 g/dL (6.5-8.0)
--- NOTE | 2021-05-06 21:28 | ED.ABDPAIN ---
HPI - Abdominal Pain General Chief Complaint: Abdominal Pain Stated Complaint: ABD PAIN FOR 1 MONTH Time Seen by Provider: 05/06/21 20:58 Source: patient and EMS Mode of arrival: EMS Limitations: no limitations History of Present Illness HPI narrative: 60 y/o female with history of chronic back pain who presents to the ER for evalution of intermittent sharp LLQ pain that has been occurring on/off for a month. She reports the pain is only when she goes from kneeling or sitting to standing up. It is sharp and located only in the LLQ, does not radiate. It subsides on its own after 15 sec or so. No fever, chills, N/V/D, urinary symptoms. She called her doctor who told her to come to the ER for evaluation. MD elicited complaint: abdominal pain Pertinent past history: none Onset (ago): month(s) (1) Pain Consistency: intermittent Location: LLQ Severity: moderate Pain scale (0-10): 7 Quality: stabbing Radiation: L flank (intermittently) Migration to: no migration Exacerbating factors: movement Relieving factors: rest Associated symptoms: denies other symptoms Related Data Home Medications Medication Instructions Recorded Confirmed albuterol sulfate 1 vial INHALATION Q6H 06/25/20 06/25/20 albuterol sulfate 90 mcg/actuation 2 puff PO Q4-6H PRN 06/25/20 06/25/20 aerosol inhaler (Ventolin HFA) amlodipine 10 mg tablet 1 tab PO DAILY 06/25/20 06/25/20 aspirin 81 mg tablet,delayed 1 tab PO DAILY 06/25/20 06/25/20 release carisoprodol 350 mg tablet 1 tab PO TID 06/25/20 06/25/20 clonazepam 0.5 mg tablet 1 tab PO BID PRN 06/25/20 06/25/20 desvenlafaxine succinate 25 mg 1 tab PO DAILY 06/25/20 06/25/20 tablet,extended release 24 hr docusate sodium 100 mg capsule 100 mg PO DAILY PRN 06/25/20 06/25/20 (Dulcolax Stool Softener (docusate)) fexofenadine 180 mg tablet 1 tab PO DAILY 06/25/20 06/25/20 fluticasone propionate 220 1 puff PO BID 11/04/20 11/04/20 mcg/actuation HFA aerosol inhaler (Flovent HFA) fluticasone propionate 230 1 puff PO 06/25/20 mcg-salmeterol 21 mcg/actuation HFA inhaler (Advair HFA) lamotrigine 100 mg tablet 1 tab PO BID 06/25/20 07/01/20 montelukast 10 mg tablet 1 tab PO BEDTIME 06/25/20 06/25/20 multivit with 1 tab PO DAILY 06/25/20 06/25/20 tqdgfppf-asms-GW-lutein 8 mg iron-400 mcg-300 mcg tablet (Centrum Silver Women) nicotine (polacrilex) 4 mg gum mg PO 06/25/20 omeprazole 20 mg capsule,delayed 1 cap PO BID 06/25/20 06/25/20 release oxycodone 5 mg tablet 1 tab PO BID PRN 06/25/20 06/25/20 pramipexole 0.5 mg tablet 1 tab PO TID PRN 06/25/20 06/25/20 quetiapine 25 mg tablet (Seroquel) 25 mg PO DAILY PRN 06/25/20 06/25/20 topiramate 50 mg tablet 2 tab PO BEDTIME 06/25/20 06/25/20 trazodone 150 mg tablet 1 tab PO BEDTIME 06/25/20 06/25/20 cephalexin 500 mg capsule 500 mg PO BID 12/22/20 doxycycline hyclate 100 mg capsule 100 mg PO BID 12/22/20 Previous Rx's Medication Instructions Recorded acetaminophen 500 mg tablet 1,000 mg PO QID PRN #14 tab 12/21/20 (Tylenol Extra Strength) cephalexin 500 mg capsule 500 mg PO BID 10 Days #20 cap 12/21/20 doxycycline monohydrate 100 mg 100 mg PO BID 10 Days #20 cap 12/21/20 capsule Allergies Allergy/AdvReac Type Severity Reaction Status Date / Time baclofen [BACLOFEN] Allergy Unknown felt Verified 12/29/20 11:15 wierd Did not work morphine [MORPHINE] Allergy Unknown THROAT Verified 12/29/20 11:15 CLOSES, anaphylaxis hydrocodone [From VICODIN] AdvReac Unknown N/V, Verified 12/29/20 11:15 palpitations Review of Systems Review of Systems Constitutional: No Fever, No Chills ENT/Mouth: No sore throat, No Rhinorrhea, No Swallowing Difficulty Cardiovascular: No Chest Pain, No SOB, No Orthopnea, No Edema Respiratory: No Cough, No Sputum, No Wheezing, No dyspnea Gastrointestinal: No Nausea, No Vomiting, No Diarrhea, + abdominal Pain, No Hematochezia, No Melena Genitourinary: No Dysuria, No Urinary Frequency, No Hematuria Musculoskeletal: No joint pain, No Myalgias Skin: No Skin Lesions, No rash Neuro: No Weakness, No Numbness, No Dizziness, No Headache Psych: No Anxiety/Panic, No Depression Heme/Lymph: No Bruising, No Lymphadenopathy Endocrine: No Polyuria, No Polydipsia Physical Exam Vital Signs: Vital Signs: Last Vital Signs Temp 98.2 F 05/06/21 20:59 Pulse 60 05/06/21 23:48 Resp 18 05/06/21 23:48 BP 119/78 05/06/21 23:48 Pulse Ox 97 05/06/21 23:48 Body Mass Index 26.2 Appearance: Alert. Oriented X3. No acute distress. Eyes: Pupils equal, round and reactive to light. ENT: Pharynx normal. Neck: Normal inspection. Neck supple. CVS: Normal heart rate and rhythm. Pulses normal. Respiratory: No respiratory distress. Breath sounds normal. Abdomen: Soft and nontender. No rebound or guarding. +BS x4 Skin: Skin warm and dry. Normal skin color. Normal skin turgor. No rashes. Extremities: No lower extremity edema. Neuro: Oriented X 3. No motor deficit. No sensory deficit. Course Course Course Narrative: 60 y/o female presents to the ER with intermittent LLQ pain with movement. No palpable hernia on exam. No tenderness on exam. Doubt diverticulitis or kidney stone. Doubt ovarian etiology. Will get labs and CT scan for further evaluation. Reevaluation(s) Reevaluation #1: Workup is unremarkable. Possible muscular pain given the pain is only present after movement and subsides with rest. Stable for d/c home with plan to follow up with her PCP. MDM - Abdominal Pain Lab Data Result diagrams: 05/06/21 20:52 05/06/21 20:52 Labs: Lab Results 05/06/21 05/06/21 05/06/21 Range/Units 20:52 20:52 20:53 WBC 6.5 (4.8-10.8) X10*3/uL RBC 4.24 (4.20-5.50) X10*6/uL Hgb 14.0 (12.0-16.0) g/dl Hct 40.1 (37-47) % MCV 94.6 (80-98) fL MCH 33.0 (27.0-33.0) pg MCHC 34.9 (31.0-35.0) g/dl RDW 12.7 (11.0-16.0) % Plt Count 215 (160-400) X10*3/uL MPV 8.6 L (9.4-12.3) fL Immature Gran % (Auto) 0.2 (0.0-0.4) % Neut % (Auto) 49.7 (45-73) % Lymph % (Auto) 41.4 H (20-40) % [place] % (Auto) 6.2 (2-11) % Eos % (Auto) 2.2 (0-4) % Baso % (Auto) 0.3 (0-2) % Lymph # (Auto) 2.7 (1.2-4.9) X10*3/uL [place] # (Auto) 0.4 (0.1-1.2) X10*3/uL Eos # (Auto) 0.1 (0.0-0.4) X10*3/uL Baso # (Auto) 0.0 (0.0-0.2) X10*3/uL Abs Immat Gran (auto) 0.01 (0.00-0.03) X10*3/uL Absolute Neuts (auto) 3.2 (2.0-8.3) X10*3/uL Absolute Nucleated RBC 0.000 (0.0-0.012) X10*3/uL Nucleated RBC % (auto) 0.0 (0.0-0.2) /100WBC Sodium 142 (135-145) mmol/L Potassium 3.5 (3.3-5.1) mmol/L Chloride 108 (96-108) mmol/L Carbon Dioxide 27 (22-29) mmol/L Anion Gap 11 L (12-20) BUN 14 (9-16) mg/dL Creatinine 0.82 (0.5-1.4) mg/dL Estim Creat Clear Calc 73.3 Estimated GFR > 60 Random Glucose 97 (60-115) mg/dL Calcium 9.4 (8.4-10.2) mg/dL Total Bilirubin 0.4 (0.0-1.0) mg/dL AST 20 (5-31) U/L ALT 20 (0-31) U/L Alkaline Phosphatase 90 (39-117) U/L Total Protein 7.1 (6.5-8.0) g/dL Albumin 4.4 (3.5-5.0) g/dL Urine Color YELLOW Urine Appearance CLEAR Urine pH 5.5 (5.0-8.0) Ur Specific [place] 1.015 (1.005-1.025) Urine Protein NEG (NEG-TRACE) MG/DL Urine Glucose (UA) NEG (NEG) MG/DL Urine Ketones NEG (NEG) MG/DL Urine Blood TRACE (NEG) Urine Nitrite NEG (NEG) Ur Leukocyte Esterase NEG (NEG) Urine RBC 0 (0) /HPF Urine WBC 0 (0-4) /HPF Ur Squamous Epith Cells NONE /LPF Urine Bacteria TRACE /LPF Critical Care Time Critical Care Time Critical Care Time: No Discharge Plan Discharge Clinical Impression: Abdominal pain Qualifiers: Abdominal location: left lower quadrant Qualified Code(s): R10.32 - Left lower quadrant pain Patient Disposition: Home, Self-Care Instructions: Abdominal Pain (ED) Additional Instructions: Your lab workup and CT scans were normal. Your pain may be muscular in nature. Recommend rest and trial of NSAIDs like Motrin or Advil. Follow up with your doctor within 2 weeks. If you develop new or worsening symptoms call 911 or come back to the ER for further evaluation. Prescriptions: No Action carisoprodol 350 mg tablet 1 tab PO TID RF: 0 albuterol sulfate 2.5 mg /3 mL (0.083 %) solution for nebulization 1 vial inhalation Q6H RF: 0 clonazepam 0.5 mg tablet 1 tab PO BID PRN (Reason: anxiety) RF: 0 fexofenadine 180 mg tablet 1 tab PO DAILY RF: 0 aspirin 81 mg tablet,delayed release (DR/EC) 1 tab PO DAILY RF: 0 pramipexole 0.5 mg tablet 1 tab PO TID PRN (Reason: Restless Leg(S)) RF: 0 nicotine (polacrilex) 4 mg gum PO RF: 0 amlodipine 10 mg tablet 1 tab PO DAILY RF: 0 trazodone 150 mg tablet 1 tab PO BEDTIME RF: 0 omeprazole 20 mg capsule,delayed release(DR/EC) 1 cap PO BID RF: 0 montelukast 10 mg tablet 1 tab PO BEDTIME RF: 0 Flovent HFA 220 mcg/actuation HFA aerosol inhaler 1 puff PO BID RF: 0 albuterol sulfate [Ventolin HFA] 90 mcg/actuation HFA aerosol inhaler 2 puff PO Q4-6H PRN (Reason: Wheezing) RF: 0 lamotrigine 100 mg tablet 1 tab PO BID RF: 0 oxycodone 5 mg tablet 1 tab PO BID PRN (Reason: pain) RF: 0 topiramate 50 mg tablet 2 tab PO BEDTIME RF: 0 Advair HFA 230-21 mcg/actuation HFA aerosol inhaler 1 puff PO RF: 0 desvenlafaxine succinate 25 mg tablet extended release 24 hr 1 tab PO DAILY RF: 0 quetiapine [Seroquel] 25 mg Tablet 25 mg PO DAILY PRN (Reason: Anxiety) RF: 0 docusate sodium [Dulcolax Stool Softener (dss)] 100 mg Capsule 100 mg PO DAILY PRN (Reason: Constipation) RF: 0 Centrum Silver Women 8 mg iron-400 mcg-300 mcg Tablet 1 tab PO DAILY RF: 0 cephalexin 500 mg capsule 500 mg PO BID 10 Days Qty: 20 RF: 0 doxycycline monohydrate 100 mg capsule 100 mg PO BID 10 Days Qty: 20 RF: 0 acetaminophen [Tylenol Extra Strength] 500 mg tablet 1,000 mg PO QID PRN (Reason: fever or pain) Qty: 14 RF: 0 doxycycline hyclate 100 mg capsule 100 mg PO BID RF: 0 cephalexin 500 mg capsule 500 mg PO BID RF: 0 PMFSH Past Medical History Medical History Abnormality of right breast on screening mammogram Agoraphobia Anxiety Asthma Bipolar 1 disorder, depressed Constipation COPD (chronic obstructive pulmonary disease) DDD (degenerative disc disease), cervical DDD (degenerative disc disease), thoracic GERD (gastroesophageal reflux disease) Hiatal hernia HTN (hypertension) Hx of hepatitis C Mild aortic regurgitation Smoker Surgical History History of ankle surgery History of breast augmentation History of cardiac cath History of esophagogastroduodenoscopy (EGD) Hx of colonoscopy Hx of hysterectomy Social History Social History Are you a primary home care attendant to a significant other at home: No Do you presently have visiting nurse or other home services: No Cigarette Packs Per Day: 1.5 Cigarettes Per Day: 30.0 Years Smoked: 44 Advance Directives: No Advance Directives Information Provided: Yes Patient : No
--- NOTE | 2021-05-06 21:51 | PC.NURSE ---
IV established. Pt ambulating to CT with a steady gait.
[2021-05-06] MEDS: iohexoL 350 MG/ML 100 ML INFUS..BTL 85 ML IV (22:02)
[2021-05-06 23:48] VITALS: BP 119/78; PULSE 60; RESP 18; O2SAT 97
== END 2021-05-06 23:58 | disposition home or self-care (01) ==
PROVIDERS: Emergency Provider Emergency Medicine; PCP Internal Medicine
DX: R10.32 Left lower quadrant pain (principal); M54.5 Low back pain; Z79.899 Other long term (current) drug therapy
CPT/HCPCS: 36415; 74177; 80053; 81001; 81003; 85025; 99283; 99284; 99285; Q9967

== ENCOUNTER 2021-06-11 13:09 | Outpatient (REF) | payer MEDICARE, MEDICAID, SELFPAY ==
--- NOTE | ~2021-06-11 | MM_ITS ---
EXAMINATION: MM DIAGNOSTIC DIGITAL BREAST TOMOSYNTHESIS, RIGHT CLINICAL INFORMATION: Short interval six-month follow-up benign right breast ultrasound-guided biopsy (benign breast tissue with organizing blood clot). The lifetime risk of breast cancer based on the Tyrer-Cuzick Model is 6%. COMPARISON: Mammography: 12/23/2020, 12/13/2020, right breast ultrasound 12/13/2020, ultrasound-guided core biopsy right breast 12/23/2020. TECHNIQUE: Digital right mammography is performed in craniocaudal and mediolateral oblique views along with computer-aided detection (CAD). Digital breast tomosynthesis is performed in implant-displaced craniocaudal and implant-displaced mediolateral oblique views along with computer-aided detection (CAD). Synthesized 2D images are generated from the tomosynthesis. FINDINGS: There are scattered areas of fibroglandular density (ACR BI-RADS breast composition Category b). There is a right breast implant similar to prior studies. There is a HydroMark open coil shaped clip corresponding to the biopsy site. There is a tubular shape isodensity surrounding the clip consistent with the hydrogel of the clip marker. There is no interval mass, developing density, architectural abnormality, or abnormal calcifications. The skin contours are smooth. MM/MM diagnostic mammo implant RT IMPRESSION: No mammographic evidence of malignancy. ASSESSMENT: BI-RADS 2: Benign RECOMMENDATION: Routine annual mammography screening. This patient's information was entered into a reminder system with a target due date for their next mammogram.
== END 2021-06-11 13:10 | disposition home or self-care (01) ==
LOC: HO.MAMMO 13:09
PROVIDERS: Visit Provider Surgery
DX: R92.8 Other abnormal and inconclusive findings on diagnostic imaging of breast (principal)
CPT/HCPCS: 77065

== ENCOUNTER 2021-12-10 12:56 | Outpatient (REF) | payer MEDICARE, MEDICAID, SELFPAY ==
--- NOTE | ~2021-12-10 | CT_ITS ---
EXAMINATION: CT ABDOMEN AND PELVIS WITH CONTRAST CLINICAL INFORMATION: Left lower quadrant pain. COMPARISON: None TECHNIQUE: Multidetector volumetric images were obtained from the superior aspect of the liver through the pubic symphysis following administration 85 mL of Omnipaque 350 intravenous contrast. Sagittal and coronal reformatted images were obtained on the technologist's workstation. Oral contrast: No This CT examination was performed using dose optimization techniques as appropriate, variously including the following: *Automated exposure control *Adjustment of mA and/or kV according to patient size (this includes techniques or standardized protocols for targeted exams where dose is matched to indication/reason for exam; i.e. extremities or head) *Use of iterative reconstruction technique DLP: 541 mGy-cm FINDINGS: LUNG BASES: The visualized lung bases are unremarkable. LIVER, GALLBLADDER, AND BILIARY TREE: The liver is normal in size, shape, and attenuation. No focal hepatic lesion or biliary ductal dilatation is present. The gallbladder is unremarkable with no evidence of radiopaque gallstones, gallbladder wall thickening, or obvious pericholecystic inflammatory changes. PANCREAS: Unremarkable. SPLEEN: Unremarkable. ADRENAL GLANDS: Unremarkable. KIDNEYS AND URETERS: The kidneys are normal in size, shape, and attenuation. No hydronephrosis, hydroureter, or calculi seen. No perinephric stranding. BLADDER: Unremarkable. GASTROINTESTINAL TRACT: There is scattered stool, contrast and gas seen throughout the colon without significant distention. The small-bowel loops are normal caliber. The appendix is normal caliber. There is no free air or free fluid seen. ABDOMINAL WALL: No significant hernia is appreciated. LYMPH NODES: Normal. VASCULAR: Unremarkable. PELVIC VISCERA: The uterus is surgically absent or atrophied. No adnexal mass seen. There is no abnormal pelvic or inguinal lymph nodes. OSSEOUS STRUCTURES: Grade 1 anterolisthesis L4 over L5. Rest of the disc heights, vertebral heights and alignment are normal. There are bilateral L3-L4, L4-L5 and L5-S1 facet joint arthropathy. CT/CT abdomen pelvis w con IMPRESSION: [id number] constipation. Fleischner guidelines were followed.
[2021-12-10] MEDS: iohexoL 350 MG/ML 100 ML INFUS..BTL IV (15:43)
[2021-12-10] MEDS: Barium Sulfate Oral (Mocha) 450 ML ORAL.SUSP 900 ML PO (15:44)
== END 2021-12-10 12:57 | disposition home or self-care (01) ==
LOC: HO.CT 12:56
PROVIDERS: Visit Provider Internal Medicine
DX: R10.32 Left lower quadrant pain (principal)
CPT/HCPCS: 74177; Q9967

== ENCOUNTER → 2022-01-15 08:31 | Outpatient (BNVA) | payer MEDICARE, MEDICAID, SELFPAY | PROVIDERS: PCP Internal Medicine; Visit Provider Nurse Practitioner Family | DX: Z12.11 Encounter for screening for malignant neoplasm of colon (principal); K59.01 Slow transit constipation | CPT/HCPCS: 99212 ==

== ENCOUNTER 2022-01-25 14:19 | Outpatient (REF) | payer MEDICARE, MEDICAID, SELFPAY ==
--- NOTE | ~2022-01-25 | MM_ITS ---
EXAMINATION: MM SCREENING DIGITAL BREAST TOMOSYNTHESIS, BILATERAL CLINICAL INFORMATION: Screening. Asymptomatic. The lifetime risk of breast cancer based on the Tyrer-Cuzick Model is 5.6%. COMPARISON: Mammography: June 11, 2021 and studies dating back to November 29, 2013 TECHNIQUE: Digital mammography is performed in craniocaudal and mediolateral oblique views along with computer-aided detection (CAD). Digital breast tomosynthesis is performed in implant-displaced craniocaudal and implant-displaced mediolateral oblique views along with computer-aided detection (CAD). Synthesized 2D images are generated from the tomosynthesis. FINDINGS: The breasts are heterogeneously dense, which may obscure small masses (ACR BI-RADS breast composition Category c). There are no significant masses, abnormal calcifications, or other abnormalities. MM/MM tomosynthesis screen imp BI IMPRESSION: There are no significant changes from prior study. ASSESSMENT: BI-RADS 1: Negative RECOMMENDATION: Routine annual mammography screening. This patient's information was entered into a reminder system with a target due date for their next mammogram.
== END 2022-01-25 14:20 | disposition home or self-care (01) ==
LOC: HO.MAMMO 14:19
PROVIDERS: Visit Provider Internal Medicine
DX: Z12.31 Encounter for screening mammogram for malignant neoplasm of breast (principal)
CPT/HCPCS: 77063; 77067

== ENCOUNTER 2022-02-18 17:08 | Outpatient (REF) | payer MEDICARE, MEDICAID, SELFPAY ==
--- NOTE | ~2022-02-18 | XR_ITS ---
EXAMINATION: XR CHEST CLINICAL INFORMATION: Sharp pain 1 week ago. Possible left lower rib cage fracture 2 days ago. COMPARISON: Chest radiographs 09/09/2019, 02/23/2013, CT abdomen 12/10/2021. TECHNIQUE: 2 views of the chest were obtained. FINDINGS: The lungs are clear. There is no pneumothorax, pleural reaction, airspace consolidation, or effusion. The costophrenic sulci are well-defined. Heart size normal. The hilar and mediastinal contours are normal. No free air beneath the diaphragms. No visible acute bony abnormality. XR/XR chest 2V IMPRESSION: Unremarkable examination.
== END 2022-02-18 17:09 | disposition home or self-care (01) ==
LOC: HO.XRAY 17:08
PROVIDERS: PCP Internal Medicine; Visit Provider Internal Medicine
DX: S22.32XA Fracture of one rib, left side, initial encounter for closed fracture (principal)
CPT/HCPCS: 71046

== ENCOUNTER 2023-09-05 09:40 | Outpatient (REF) | payer MEDICARE, MEDICAID, SELFPAY ==
--- NOTE | ~2023-09-05 | XR_ITS ---
EXAMINATION: XR SHOULDER, LEFT CLINICAL INFORMATION: Shoulder pain COMPARISON: None available. TECHNIQUE: Three views of the left shoulder. FINDINGS: No acute fracture or dislocation. Mild narrowing of the acromioclavicular joint with spurring. XR/XR shoulder LT min 2V IMPRESSION: Mild narrowing of the acromioclavicular joint with spurring.
== END 2023-09-05 09:41 | disposition home or self-care (01) ==
LOC: HO.HOSX 09:40
PROVIDERS: Visit Provider Orthopaedic Surgery
DX: M75.52 Bursitis of left shoulder (principal)
CPT/HCPCS: 20610; 73030; 99202; J0665; J1100

== ENCOUNTER 2023-09-05 12:46 | Outpatient (AMB) | payer MEDICARE, MEDICAID, SELFPAY ==
--- NOTE | 2023-09-05 12:51 | A.OFFVIS_ITS ---
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 Patient reports that she has had left shoulder pain for about 2 months now, she denies injury. Her pain had a gradual onset, and has limited ROM. Pain is felt mostly the bicep area. 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 She reports ~2 months of worsening pain in her arm. She has some pain in her shoulder but localizes most of her pain to her biceps region. She says her pain began gradually and worsened over time. She feels she has limited ROM. She denies any prior treatment. [facility] Medical History Abnormality of right breast on screening mammogram COPD (chronic obstructive pulmonary disease) Mild aortic regurgitation Hiatal hernia Hx of hepatitis C DDD (degenerative disc disease), thoracic DDD (degenerative disc disease), cervical Smoker Asthma Agoraphobia Anxiety Bipolar 1 disorder, depressed Constipation GERD (gastroesophageal reflux disease) HTN (hypertension) Surgical History History of cardiac cath Hx of hysterectomy History of breast augmentation History of ankle surgery Hx of colonoscopy History of esophagogastroduodenoscopy (EGD) Social History Are you a primary care transitions nurse to a significant other at home: No Do you presently have visiting nurse or other home services: No Cigarette Packs Per Day: 1.5 Cigarettes Per Day: 30.0 Years Smoked: 45 Female Reproductive History Menstrual Age of Menarche: 16 Review of Systems Const All systems reviewed & are unremarkable except as noted in HPI and below Physical Exam Vital Signs: BMI result Body Mass Index 27.0 Const General: no acute distress, alert and awake Orientation/consciousness: patient oriented x3 HEENT Head: Yes normocephalic and Yes atraumatic Eyes EOM: EOMs intact bilaterally Resp Effort & Inspection: normal respiratory effort and able to speak in complete sentences Cardio Jugular venous distension: no JVD Skin General skin exam: turgor normal Rashes: no rashes Neuro General: patient oriented x3 Psych Appearance: grossly normal Affect: normal affect Attitude: cooperative Office Procedures Joint Injection/Drain Joint Injection/Drain Details: Injected 1 mL of Decadron and 3 mL 1% lidocaine and 3 mL of 0.25% Marcaine. Site was prepped using aseptic technique. Patient tolerated the procedure well. Primary Site: left shoulder Approach Used: posterolateral Coding - Large joint Procedure code (CPT) selection complete Results Reviewed Results Reviewed: I personally reviewed relevant radiographs. Mild acj OA. Otherwsie unremarkable Assessment & Plan Assessment & Plan (1) Bursitis of left shoulder: Code(s): M75.52 - Bursitis of left shoulder Plan: Injected left shoulder PT Plan Scribed for Antoine Montano MD by Yonatan Ro, paramedical aide, on 09/05/23 at 1:03 PM, EST. Orders: Orders XR shoulder LT min 2V Today M25.519 - Pain in unspecified shoulder PT Evaluation and Treatment Today M75.52 - Bursitis of left shoulder Coding Level of Care Code New Pt Level 3 (94184) Diagnoses Bursitis of left shoulder M75.52 CPT Codes Coding - Large joint: 61528 - Large joint ([id number])
[2023-09-05 13:00] VITALS: BMI 27.0
== END 2023-09-05 13:30 | disposition home or self-care (01) ==
PROVIDERS: PCP Internal Medicine; Visit Provider Orthopaedic Surgery
DX: M75.52 Bursitis of left shoulder (principal)
CPT/HCPCS: 20610; 99203

== ENCOUNTER 2023-10-05 14:00 | Outpatient (RCR) | payer MEDICARE, MEDICAID, SELFPAY ==
--- NOTE | 2023-09-19 14:53 | MHC.PT.EP ---
[facility] [place] Office [place] Office [place] Office [address] Emilia Ortiz [address] [phone] F: [phone] F: [phone] F: [phone] F: [phone] Physical Therapy Plan of Care Date of Evaluation: 09/19/23 Date of Surgery: Diagnosis: This is a 64 yo female presenting to skilled PT with a script for bursitis of L shoulder. Assessment: This is a 64 yo female presenting to skilled PT with a script for bursitis of L shoulder. Patient reports that she has had left shoulder pain starting at the beginning of Jul 2023, she denies injury however thinks that it may have stemmed from lifting something heavy outside. She went to urgent care on 08/19, she was given prednisone and sent her to [facility] [place]. She had a cortisone injection 09/05/23 (helped minimally). Pain is felt mostly at the bicep area and into upper trap, this is described as sharp. Pain is with movement, minimal at rest. She does not have an appointment to return to ortho at this time. Assessment reveals pain that ranges from up to a 6-9/10 at the worst. Patient demos decreased L shoulder and cervical ROM, strength of B shoulder's, TTP at bicep insertion, UT and ACJ and impaired posture with forward head and rounded shoulders. Based on functional limitations, impaired QOL and pain tolerance patient is a good candidate for skilled PT 2x/wk for 4wks. Frequency and Duration: The patient will be seen 2x/wk for 4wks Short Term Goals: (In 2 weeks) Demo I with HEP Improve shoulder AROM by at least 10 degs Demo proper scapular recruitment with appropriate shoulder strengthening exercises Jail Goals: (in 4 wks) Improve shoulder nonpainful AROM to almost near equal B Demo at least 1 grade improvement in MMT for shoulder Improve SPADI by at least 10 points Improve overall functional QOL by at least 50% Treatment Plan: Modalities to reduce pain, spasms and effusion. Manual therapy to restore motion and function. Therapeutic exercise to improve strength and flexibility. Neuromuscular re-education for posture and balance. Therapeutic activities to return to functional activities of daily living. Electronically signed by: Angie Jean-Baptiste PT Please sign and return to therapist. Thank you for your referral.
--- NOTE | 2023-11-03 12:25 | MHC.PT.DC ---
[facility] [place] Office [place] Office [place] Office [address]iz [address] [phone] F: [phone] F: [phone] F: [phone] F: [phone] Physical Therapy Discharge Report Diagnosis: This is a 64 yo female presenting to skilled PT with a script for bursitis of L shoulder. Date of Surgery: Date of Evaluation: 09/19/23 Date of Discharge: 11/03/23 Treatments to Date: 4 Cancellations to Date: 0 No Shows to Date: 0 Discharge Status: Achieved Goals Improved Function Independent with HEP Patient Elected to Stop Discharge Summary: 10/05: Patient is feeling well, she reports that she is ready for DC and has been able to return to her usual routine without issues. She demos normal shoulder ROM, strength and has no more pain. She has met her goals and is ready for DC at this time. Chart was closed after 30 days. Electronically signed by: Angie Jean-Baptiste PT Please sign and return to therapist. Thank you for your referral.
== END 2023-11-03 12:26 | disposition home or self-care (01) ==
LOC: HO.PTCHIC 14:00
PROVIDERS: PCP Internal Medicine; Visit Provider Orthopaedic Surgery
DX: M75.52 Bursitis of left shoulder (principal)
CPT/HCPCS: 97110; 97162

== ENCOUNTER 2024-01-02 10:49 | Outpatient (AMB) | payer MEDICARE, MEDICAID, SELFPAY ==
--- NOTE | 2024-01-02 10:57 | A.OFFVIS_ITS ---
Vital Signs 01/02/24 10:58 Height 5 ft 5 in Weight 162 lb BMI 27.0 Intake Visit Reasons: OV-LT shoulder/Bicep area pain Allergies baclofen [BACLOFEN] Allergy (Unknown, Verified 09/05/23 13:02) felt wierd Did not work morphine [MORPHINE] Allergy (Unknown, Verified 09/05/23 13:02) THROAT CLOSES, anaphylaxis hydrocodone [From VICODIN] Adverse Reaction (Unknown, Verified 09/05/23 13:02) N/V, palpitations HPI HPI OV-LT shoulder/Bicep area pain: Details: Sharon is a 63 year old right female who presents today for a follow up of her left shoulder bursitis. The left shoulder was injected on 09/05/23, Physical Therapy was also ordered. Patient reports that the injection was mildly helpful but her pain has since returned. Patient reports that she is having pain in the bicep, tricep, shoulder and up into neck. She cannot lift the arm above shoulder height which is limiting her ability to drive. She has mild tingling in certain fingers. [facility] Medical History Abnormality of right breast on screening mammogram COPD (chronic obstructive pulmonary disease) Mild aortic regurgitation Hiatal hernia Hx of hepatitis C DDD (degenerative disc disease), thoracic DDD (degenerative disc disease), cervical Smoker Asthma Agoraphobia Anxiety Bipolar 1 disorder, depressed Constipation GERD (gastroesophageal reflux disease) HTN (hypertension) Surgical History History of cardiac cath Hx of hysterectomy History of breast augmentation History of ankle surgery Hx of colonoscopy History of esophagogastroduodenoscopy (EGD) Social History Are you a primary physician assistant primary care to a significant other at home: No Do you presently have visiting nurse or other home services: No Cigarette Packs Per Day: 1.5 Cigarettes Per Day: 30.0 Years Smoked: 45 Female Reproductive History Menstrual Age of Menarche: 16 Physical Exam Vital Signs: BMI result Body Mass Index 27.0 Const General: no acute distress, alert and awake Orientation/consciousness: patient oriented x3 HEENT Head: Yes normocephalic and Yes atraumatic Eyes EOM: EOMs intact bilaterally Resp Effort & Inspection: normal respiratory effort and able to speak in complete sentences Cardio Jugular venous distension: no JVD Skin General skin exam: turgor normal Rashes: no rashes Neuro General: patient oriented x3 Extrem Other: There is tenderness to palpation greater tuberosity as well as along the bicipital groove with positive Rand Neer and a negative empty can left shoulder. She is very apprehensive and hyper algesic. Psych Appearance: grossly normal Affect: normal affect Attitude: cooperative Office Procedures Joint Injection/Drain Joint Injection/Drain Details: Injected 1 mL of Decadron and 3 mL 1% lidocaine and 3 mL of 0.25% Marcaine. Site was prepped using aseptic technique. Patient tolerated the procedure well. Primary Site: left shoulder Approach Used: posterolateral Coding - Large joint Procedure code (CPT) selection complete Assessment & Plan Assessment & Plan (1) Bursitis of left shoulder: Code(s): M75.52 - Bursitis of left shoulder Category: Medical Plan: Injected left shoulder PT Pain management Coding Level of Care Code Est Pt Level 3 (16293) Diagnoses Bursitis of left shoulder M75.52 CPT Codes Coding - Large joint: 18832 - Large joint ([id number])
[2024-01-02 10:58] VITALS: BMI 27.0
== END 2024-01-02 12:13 | disposition home or self-care (01) ==
PROVIDERS: PCP Internal Medicine; Visit Provider Orthopaedic Surgery
DX: M75.52 Bursitis of left shoulder (principal)
CPT/HCPCS: 20610; 99213

== ENCOUNTER → 2024-01-02 10:49 | Outpatient (BNVA) | payer MEDICARE, MEDICAID, SELFPAY | PROVIDERS: PCP Internal Medicine; Visit Provider Orthopaedic Surgery | DX: M75.52 Bursitis of left shoulder (principal) | CPT/HCPCS: 20610; 99212; J0665; J1100 ==

== ENCOUNTER 2024-02-20 11:00 | Outpatient (REF) | payer MEDICARE, MEDICAID, SELFPAY ==
--- NOTE | ~2024-02-20 | MM_ITS ---
EXAMINATION: MM SCREENING DIGITAL BREAST TOMOSYNTHESIS, BILATERAL CLINICAL INFORMATION: Screening. Asymptomatic. COMPARISON: Mammography: This study is compared with prior exams dating back to 2017. TECHNIQUE: Digital mammography is performed in craniocaudal and mediolateral oblique views along with computer-aided detection (CAD). Digital breast tomosynthesis is performed in implant-displaced craniocaudal and implant-displaced mediolateral oblique views along with computer-aided detection (CAD). Synthesized 2D images are generated from the tomosynthesis. FINDINGS: There are scattered areas of fibroglandular density (ACR BI-RADS breast composition Category b). There are bilateral, mammographically intact, retropectoral saline breast implants. There is a tissue marker in the right breast from prior benign percutaneous biopsy. There are no significant masses, abnormal calcifications, or other abnormalities. MM/MM tomosynthesis screen imp BI IMPRESSION: There are no significant changes from prior study. ASSESSMENT: BI-RADS BI-RADS 1 - Negative RECOMMENDATION: Routine annual mammography screening. 1 year F/U This patient's information was entered into a reminder system with a target due date for their next mammogram.
== END 2024-02-20 11:01 | disposition home or self-care (01) ==
LOC: HO.MAMMO 11:00
PROVIDERS: PCP Internal Medicine; Visit Provider Internal Medicine
DX: Z12.31 Encounter for screening mammogram for malignant neoplasm of breast (principal)
CPT/HCPCS: 77063; 77067

== ENCOUNTER → 2024-02-20 11:00 | Outpatient (BNV) | payer MEDICARE, MEDICAID, SELFPAY | PROVIDERS: PCP Internal Medicine; Visit Provider Radiology Diagnostic Radiology | DX: Z12.31 Encounter for screening mammogram for malignant neoplasm of breast (principal) | CPT/HCPCS: 77063; 77067 ==

== ENCOUNTER → 2025-02-25 11:45 | Outpatient (BNV) | payer MEDICARE, MEDICAID, SELFPAY | PROVIDERS: PCP Internal Medicine; Visit Provider Radiology Body Imaging | DX: Z12.31 Encounter for screening mammogram for malignant neoplasm of breast (principal) | CPT/HCPCS: 77063; 77067 ==

== ENCOUNTER 2025-02-25 11:47 | Outpatient (REF) | payer MEDICARE, MEDICAID, SELFPAY ==
--- OUTSIDE RECORDS SUMMARY | 2025-02-25 12:38 | XMS_ITS | Data Portability ---
Author Organization [place] [facility] Address [address] [place] [id number] Care Team Providers Care Senior Business Objects Developer Name Role Phone SHAGGY MUHAMMAD Primary Care Provider Assessment Encounter Date Assessment Date Assessment LastModified by Organization Details LastModified Time 09/05/2019 09/05/2019 Overview/History : 51-year-old female with asthma and COPD, 2 weeks of shortness of breath, cough. Recently returned from a [place]/symptoms had begun prior to her trip. While there, treated with 3 days of azithromycin and prednisone but symptoms persist. Reports cough. Denies sinus congestion, sore throat. Does report ear pressure. States use albuterol 4 hours prior to exam, using Flovent as prescribed. Exam: Afebrile female, speaking unable to speak full sentences. Heart sounds regular, lungs less expiratory wheezing throughout, no crackles or rhonchi noted. No sinus tenderness noted, ear canals clear TMs mildly pungent, no erythema or exudates noted about the posterior oropharynx, no cervical lymphadenopathy noted. EKG normal sinus rhythm. DDx considered, but not limited to: Cancer and asthma exacerbation secondary to bacterial URI given time course. Consider viral URI given time course and lack of improvement, this appears less likely. Considered to be given recent travel and shortness of breath however lung sounds present throughout with expiratory wheezes. Consider pneumonia however no crackles noted and patient is afebrile. Work up/Results: EKG normal sinus rhythm. Plan/Discussion: Doxycycline 1 pill twice daily for 10 days as prescribed.Prednis one as prescribed, advise may cause increased appetite, moodiness, jitteriness. Patient received a first dose of both doxycycline and prednisone during visit today. Will obtain chest x-ray to evaluate, further orders pending results. Advise continue all medications as previously prescribed. Saline nasal rinse, instructed patient to use distilled water not tap water for this. Warm salt water gargles throughout the day for symptomatic relief. Saline nasal spray throughout the day as needed. Drink plenty of fluids. Patient instructed to eat yogurt or take a probiotic daily to help prevent yeast infection. Patient instructed to finish all medications as prescribed even if feeling better. Patient instructed to call if symptoms worsen or do not improve; patient acknowledges understands and agrees with plan. Note created with voice recognition software and may contain grammatical errors due to this. Time On Scene with Patient: 00:48:53 lsaloio Not available 09/05/2019 18:51:00 09/09/2019 09/09/2019 Overview/History : 59-year-old female, with recent travel, with shortness of breath and cough. Chest x-ray from 3 days ago shows no infiltrates but hyperinflation, EKG from previous visit 4 days ago normal sinus rhythm. Patient started on doxycycline and high dose prednisone but denies any improvement in symptoms. Vital signs appear to have worsened over the course of treatment. Exam: Afebrile female, tachypneic at rest and tachycardic with exertion. Heart sounds regular, lungs with coarse sounds and expiratory wheezes, audible wheezes noted as well. DDx considered, but not limited to: Consider PPI given recent travel. Consider viral respiratory infection as patient has not responded to doxycycline although it was also not responded to prednisone. Consider resistant bacterial respiratory infection given that patient has not responded to doxycycline. Work up/Results: Recent chest x-ray shows no infiltrates but did show hyperinflation, recent EKG normal sinus rhythm. Plan/Discussion: Patient transferred via EMS to [place] [facility] for evaluation and management. Patient instructed to call if symptoms worsen or do not improve; patient acknowledges understands and agrees with plan. Note created with voice recognition software and may contain grammatical errors due to this. Patients PCP contacted and updated on patient status. Patient verbalized understanding of discharge instructions and when to follow up with PCP/911/ED as needed. Patient in agreement with current plan and treatment. In order to obtain further information and compare any laboratory results/values, I have accessed old patient records. This information was pertinent in my medical decision making today. Time On Scene with Patient: 00:36:24 - Referred - Point of Care: Emergency Department [email or web address] Not available 09/09/2019 10:42:15 Plan of Treatment Reminders Order Date Submit Date Provider Last Modified By Organization Details Last Modified Time Details Appointments None recorded. Lab None recorded. Referral None recorded. Procedures None recorded. Surgeries None recorded. Imaging XR, chest, 2 view 2019 [facility] ([facility]), [address], [place], [address], 0 11:29:23 Medication Orders prednison e 10 mg tablet 2019 020 [email or web address] Not available 0 16:58:23 prednison e 10 mg tablet 2019 [email or web address] Not available 0 16:58:23 doxycycli ne hyclate 100 mg capsule 2019 020 [id number] [address], [place], [id number], 0 18:28:55 doxycycli ne hyclate 100 mg capsule 2019 020 [email or web address] Not available 0 16:58:23 Patient TargetsNo targets recorded. Patient Instructions Encounter Date Encounter Id Patient Instructions Last Modified By Organization Details Last Modified Time 09/05/2019 [id number] Doxycycline 1 pill twice daily for 10 days as prescribed. Prednisone as prescribed, may cause increased appetite, moodiness, jitteriness. Continue all asthma medication as previously prescribed. Saline nasal rinse (Neti-Pot), use distilled water not tap water for this. Warm salt water gargles throughout the day for symptomatic relief. Saline nasal spray throughout the day as needed. Drink plenty of fluids. Eat yogurt or take a probiotic daily to help prevent yeast infection. [email or web address] Not available 09/05/2019 18:32:50 Reason for Referral None Reported. Results Created Date Observation Date Name Description Value Unit Range Abnormal Flag Note LastModifiedBy Organization Detail LastModifiedTime 09/06/19 20 09/06/2019 XR, chest , 2 view XRAY CHEST 2 VIEW FINDIN GS: The heart size appear s normal . There are no active infilt rates or change s of pulmon cece venous conges tion. There is no radiog raphic eviden ce of a pleura l effusi on. The lungs appear hyperi nflate d. The bone struct ures appear grossl y unrema rkable . CONCLU CHELLE: No acute cardio pulmon cece diseas e. ELECTR ONICAL LY SIGNED BY KATELYN YEPEZ M.D. 11:12: 11 AM EST. XRAY CHEST 2 VIEW Result s: The heart size appear s normal . There are no active infilt rates or change s of pulmon cece venous conges tion. There is no radiog raphic eviden ce of a pleura l effusi on. The lungs appear hyperi nflate d. The bone struct ures appear grossl y unrema rkable . Conclu chelle: No acute cardio pulmon cece diseas e. Electr onical ly signed by KATELYN YEPEZ M.D. 11:12: 11 AM EST. [email or web address] [facility] ([facility]) [address] , [place], [address], 09/06/2019 21:21:56 09/14/19 20 elect rocar diogr am No observ ation record ed. BARCODE Not Available 2019 15:48:28 Result Notes Documentation Provider Name and Address Organization Details Recorded Time Xr, Chest, 2 View : XRAY CHEST 2 VIEW FINDINGS: The heart size appears normal. There are no active infiltrates or changes of pulmonary venous congestion. There is no radiographic evidence of a pleural effusion. The lungs appear hyperinflated. The bone structures appear grossly unremarkable. CONCLUSION: No acute cardiopulmonary disease. ELECTRONICALLY SIGNED BY JAMILAH JORGE M.D. 09/06/2019 11:12:11 AM EST. XRAY CHEST 2 VIEW Results: The heart size appears normal. There are no active infiltrates or changes of pulmonary venous congestion. There is no radiographic evidence of a pleural effusion. The lungs appear hyperinflated. The bone structures appear grossly unremarkable. Conclusion: No acute cardiopulmonary disease. Electronically signed by JAMILAH JORGE M.D. 09/06/2019 11:12:11 AM EST. DERREK SIMPSON NP [address], [place], [address], [place] [facility] 09/06/2019 21:21:56 Procedures Surgical History Date Name Laterality Status Provider Name and Address Organization Details Recorded Time 09/05/19 ECG Interpretation - completed [facility] [address], [place], [address], [place] [facility] 09/05/2019 18:20:10 Imaging Results None recorded. Procedure Notes None recorded. Medical Equipment None Reported. Allergies No known drug allergies Medications Name Sig Start Date Stop Date Status Note LastModified by Organization Details LastModified Time carisoprodo l 350 mg tablet active Not Available Not Available Not Available quetiapine 25 mg tablet active Not Available Not Available Not Available prednisone 10 mg tablet 40 mg PO administe red on scene. Time administe red: 1822 2019 active Not Available Not Available Not Avai lable doxycycline hyclate 100 mg capsule Take 1 capsule once. Time administe red: 1622 2019 active Not Available Not Available Not Avai lable lamotrigine 200 mg tablet active Not Available Not Available Not Available azithromyci n 250 mg tablet 09/09 completed Not Available Not Available Not Available tizanidine 4 mg tablet active Not Available Not Available Not Available clonazepam 0.5 mg tablet active Not Available Not Available Not Available amlodipine 5 mg tablet 09/05 completed Not Available Not Available Not Available pramipexole 0.5 mg tablet active Not Available Not Available Not Available citalopram 20 mg tablet active Not Available Not Available Not Available metoclopram ari 5 mg tablet active Not Available Not Available Not Available trazodone 100 mg tablet active Not Available Not Available Not Available amlodipine 10 mg tablet active Not Available Not Available Not Available trazodone 150 mg tablet active Not Available Not Available Not Available triamcinolo ne acetonide 0.025 % topical ointment active Not Available Not Available Not Available trazodone 300 mg tablet active Not Available Not Available Not Available omeprazole 20 mg capsule,del ayed release active Not Available Not Available Not Available diclofenac sodium 75 mg tablet,jorgito yed release active Not Available Not Available Not Available montelukast 10 mg tablet active Not Available Not Available Not Available lamotrigine 100 mg tablet active Not Available Not Available Not Available Ventolin HFA 90 mcg/actuati on aerosol inhaler active Not Available Not Available Not Available oxycodone 5 mg tablet active Not Available Not Available No t Available topiramate 50 mg tablet active Not Available Not Available Not Available Flovent HFA 220 mcg/actuati on aerosol inhaler active Not Available Not Available Not Available aspirin active Not Available Not Avail able Not Available quetiapine 50 mg tablet active Not Available Not Available Not Available desvenlafax ine succinate ER 50 mg tablet,exte nded release 24 hr active Not Available Not Available Not Available Vitals Date Recorded Heart rate Oxygen saturation Oxygen saturation in Arterial blood by Pulse oximetry Body temperature Respiratory rate Systolic And Diastolic Provider Name and Address Organization Details Last Updated DateTime 0 60 /min 98 % 98 % 99.6 [degF] 18 /min 132/78 mm[Hg] Not Available [facility] 0 17:59:42 Date Recorded Body temperature Respiratory rate Heart rate Oxygen saturation Oxygen saturation in Arterial blood by Pulse oximetry Oxygen saturation Oxygen saturation in Arterial blood by Pulse oximetry Systolic And Diastolic Provider Name and Address Organization Details Last Updated DateTime 0 97.4 [degF] 26 /min 66 /min 98 % 98 % 92 % 92 % 118/60 mm[Hg] Not Available [facility] 0 09:56:51 Social History Question Answer Notes LastModified by Organizat ion Details LastModified Time Tobacco Smoking Status Current Every Day Smoker [facility] [address] [place], [address], [place] [facility] 09/05/2019 18:03:03 Do You Have An Advance Directive? No Information not available 09/05/2019 What Is Your Code Status? Full Code Information not available 09/05/2019 Drugs Abused 0 Information not available 09/05/2019 How Many Days In The Past Year Have You Had A Heavy Drinking Consumption (4+ Female, 5+ Male)? 0 Information not available 09/05/2019 Marital Status Domestic Partner Information not available 09/05/2019 What Was The Date Of Your Most Recent Tobacco Screening? 09/05/2019 Information not available 09/05/2019 How Much Tobacco Do You Smoke? 1 PPD Information not available 09/05/2019 How Many Years Have You Smoked Tobacco? 40 Information not available 09/05/2019 Sex: Unknown Functional Status Question Answer Note LastModified by Organizat ion Details LastModified Time Do you or have you ever used smokeless tobacco? Never used smokeless tobacco Information not available 09/05/2019 Do you or have you ever used e-cigarettes or vape? Never used electronic cigarettes Information not available 09/05/2019 Mental Status None recorded. Family History Relationship Description Onset Age of this Age Resolved Age Notes LastModified by Organization Details LastModified Time Mother Myocardial infarction [email or web address] Not available 09/05 18:02:26 Medical History Condition Response Diabetes N Coronary Artery Disease N High Cholesterol N Pulmonary Embolism N Cancer N Hypertension Y Stroke N Asthma Y COPD Y Depression N Kidney Disease N Gynecological HistoryNo gynecological history recorded. Obstetrics History GPAL:G 0 P 0 0 0 0 Past Encounters Encounter ID Performer Location Encounter Start Date Encounter Closed Date Diagnosis/Indication Diagnosis SNOMED-CT Code Diagnosis ICD10 Code Diagnosis Note [id number] [facility] [address] [facility] [place] [address] 09/05/2019 17:52:23 09/06/2019 11:52:37 Acute exacerbation of asthma 403309491 J45.901 Acute uppe r respiratory infection 50050657 J06.9 [id number] [facility] [address] [place] [address] 09/09/2019 09:52:06 09/10/2019 12:05:10 Dyspnea 057769852 R06.00 Health Concerns Section Related Observation LastModified by Organization Detai ls LastModified Time None Recorded Concern Status LastModified by Organization Details LastModified Time None Recorded Advance Directives Directive N: Payers Insurance Date Sequence Insurance Name Policy Number Policy Pink Covered Member ID Pink Member ID Guarantor Name 09/05/2019 1 *SELF PAY* Sharon Jaimes [id number] Sharon Jaimes 09/06/2019 1 MEDICARE B-[place]: [facility] Sharon Jaimes [id number] Sharon Jaimes 09/24/2019 2 [place] [facility] Sharon Jaimes [id number] Sharon Jaimes 09/14/2019 1 MEDICARE B-[place] [facility] Sharon Jaimes [id number] Sharon Jaimes Notes Date Note Type Note Provider Name and Address Organization Details Recorded Time 09/05/2019 text/html 59-year-old fredy abernathy, with history of asthma and COPD, presents for evaluation of shortness of breath. Ethan went to [facility] on 08/22 and did have a bit of cough when she left. States once there, developed shortness of breath like she couldn't move any air . Reports cold sweats, ear pressure. Denies sinus congestion, sore throat, palpitations. States does not know about chest pain. Reports was seen 08/27 in [facility] and diagnosed with URI and given 3 days of prednisone, and azithromycin. Reports using Flovent, albuterol as prescribed and last albuterol usage approximately 4 hours prior to exam. [facility] [place], [place], [address], [place] [facility] 09/05/2019 18:53:52 09/09/2019 text/html 59-year-old fredy abernathy presents for evaluation shortness of breath. Patient was seen for the same, as well as for cough, on 09/05 at which point EKG was normal sinus rhythm, she was started on doxycycline and high dose prednisone. Chest xray was ordered which did not show any infiltrates but did show hyperinflation.Lis ent had previously been in a rubor from 08/22 through 09/04 although stated some of her symptoms started her arrival. [facility] has been taking doxycycline and prednisone as prescribed but does not note much improvement in symptoms over these last 4 days. gets extremely short of breath with any exertion. Denies chest pain, palpitations, dizziness. She states took albuterol nebulizer just prior to our arrival today. [facility] has been monitoring her vitals and reports O2 was 94% on room air prior to use of albuterol. There does not appear to be any improvement in O2 sats after albuterol usage and patient he sat down to 92% on room air with exertion[place], [address], [place] [facility] 09/09/2019 10:43:17 OBGyn Episode No OBEpisode recorded.
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
== END 2025-02-25 11:48 | disposition home or self-care (01) ==
LOC: HO.MAMMO 11:47
PROVIDERS: PCP Internal Medicine; Visit Provider Internal Medicine
DX: Z12.31 Encounter for screening mammogram for malignant neoplasm of breast (principal)
CPT/HCPCS: 77063; 77067

== ENCOUNTER 2025-06-19 11:09 | Outpatient (AMB) | payer MEDICARE, MEDICAID, SELFPAY ==
--- NOTE | 2025-06-19 08:10 | A.OFFPC_ITS ---
Vital Signs 06/19/25 11:17 Height 5 ft 4.5 in Weight 149 lb 8 oz BMI 25.3 BP 110/70 Blood Pressure Location Lt brachial Position Sitting Respiration 16 Pulse 70 Pulse Source Pulse Oximeter Temp 98.3 F Temp Source Oral Pulse Oximetry (%) 95 Intake Visit Reasons: reestablish care Content Creation Manager Required: No Accompanied by: Self / Same As Patient Allergies baclofen (BACLOFEN) Allergy (Unknown, Verified 06/19/25 08:11) felt wierd Did not work morphine (MORPHINE) Allergy (Unknown, Verified 06/19/25 08:11) THROAT CLOSES, anaphylaxis hydrocodone (From VICODIN) Adverse Reaction (Unknown, Verified 06/19/25 08:11) N/V, palpitations Medication List - Last Reconciled 06/19/25 by Dixie Brady MD albuterol sulfate 1 vial inhalation Q6H albuterol-budesonide 90-80 mcg/actuation (Airsupra) 2 inhalations inhalation BID PRN amlodipine 10 mg PO DAILY aspirin 1 tab PO DAILY pvcrssdccj-xaqkzyhv-xxoxrieegr 160-9-4.8 mcg/actuation (Breztri Aerosphere) 2 inhalations inhalation BID carisoprodol 350 mg PO TID PRN cetirizine 10 mg PO DAILY cholecalciferol (vitamin D3) 25 mcg PO DAILY desvenlafaxine succinate ER 1 tab PO DAILY desvenlafaxine succinate ER 100 mg PO DAILY docusate sodium (Dulcolax Stool Softener (docusate)) 100 mg PO DAILY PRN ezetimibe 10 mg PO DAILY fluticasone propionate 50 mcg/actuation 2 sprays intranasal QAM lamotrigine 150 mg PO BID lidocaine 5% 1 patch topical DAILY PRN losartan 25 mg PO DAILY meloxicam 15 mg PO DAILY montelukast 1 tab PO BEDTIME multivitamin 1 tab PO DAILY nicotine 2 patches topical DAILY nicotine (polacrilex) mg PO omeprazole 1 cap PO BID oxycodone 5 mg PO QID PRN polyethylene glycol 3350 (Miralax) 238 grams PO ONCE polyethylene glycol 3350 (Miralax) 17 grams PO DAILY pramipexole 0.25 mg PO TID quetiapine (Seroquel) 25 mg PO BEDTIME PRN topiramate 100 mg PO BID trazodone 1 tab PO BEDTIME varenicline tartrate 1 mg PO BID Tobacco use date assessed: 06/19/25 Dental Screening Dental Screen Date: 06/19/25 Did you have a dental visit in the last 12 months?: Yes Did you have a dental problem in the last 6 months where you did not have access to dental care?: No Was dental information given to patient?: Patient has dentist HPI HPI Comments History of Present Illness Details The patient is a 64-year-old female presenting with a need to re-establish care and follow-up on multiple chronic medical conditions. Cervical spinal stenosis: Had imaging that revealed cervical stenosis with bone spurs at outside facility per patient report. Right arm slight numbness during computer work. Awaiting epidural in July with [facility]. Chronic Obstructive Pulmonary Disease (COPD): Long-term smoker participating in smoking cessation. History of COPD with wheezing, no current congestion, was started on breztri by last sampler pickup. Was enrolled in lung cancer screening program at [facility] but desires to change sampler pickup. Chronic pain management: Chronic pain managed with oxycodone, occasional soma and meloxicam; uses cryoderm topically. Restless leg syndrome: Managed with pramipexole HTN-stable Depression/anxiety-stable, managed by psych med provider Medical History: - Cervical spinal stenosis - Chronic Obstructive Pulmonary Disease (COPD) - Nicotine dependence - History of respiratory syncytial virus (RSV) infection - Hypertension - Restless leg syndrome - Hypercholesterolemia - Gastroesophageal reflux disease (GERD) - Asthma Social History: - Long-term smoker; enrolled in a smokin g cessation program Diagnostic Results: - Cervical spine xray results pending - Recent PFT at [facility] - will request results - History of low-dose CT scan- records p ending Review of Systems - Musculoskeletal: Reports slight numbne ss in the right arm, uses heat/cold for relief - Respiratory: Denies congestion, report s intermittent wheezing - Neurological: Reports restless leg syn drome - Pain: Reports ongoing chronic neck an d back pain Physical Exam General: NAD Chest: CTABL. Card: normal s1, s2 Abd: SNTND, +BS Extremities: no edema Neuro: AOX3 Assessment and Plan 1. Cervical spinal stenosis - Steroid injections scheduled for Decem krystle - Monitor post-injection outcomes with p ain management 2. Chronic Obstructive Pulmonary Disease (COPD) - Refer to pulmonology - Emphasize smoking cessation 3. Chronic pain management - Continue prescribed medications - Toxicology screen obtained - Contract renewed 4. Restless leg syndrome - Continue current pramipexole regimen 5. Anxiety/depression-continue current m edications Discussion Notes I reviewed the COPD diagnosis and emphasized the importance of the smoking cessation program and appropriate inhaler use. Patient Instructions - Continue using prescribed medications as directed. - Attend the scheduled epidural injectio n appointment. - Participate actively in the smoking ce ssation program. - Use topical cryoderm, heat, and cold t herapies for pain relief. [facility] Medical History (Updated 06/19/25 @ 16:45 by Dixie Brady MD) Depression Restless legs syndrome Therapeutic drug monitoring Abnormality of right breast on screening mammogram COPD (chronic obstructive pulmonary disease) Mild aortic regurgitation Hiatal hernia Hx of hepatitis C DDD (degenerative disc disease), thoracic DDD (degenerative disc disease), cervical Smoker Asthma Agoraphobia Anxiety Bipolar 1 disorder, depressed Constipation GERD (gastroesophageal reflux disease) HTN (hypertension) Surgical History (Updated 06/17/25 @ 17:24 by Lay John) History of cardiac cath Hx of hysterectomy History of breast augmentation History of ankle surgery Hx of colonoscopy (~07/01/20) History of esophagogastroduodenoscopy (EGD) Social History Housing: House Are you a primary resident care manager to a significant other at home: No Do you presently have visiting nurse or other home services: No Patient Tobacco Use Status: Current everyday Tobacco user Cigarette Packs Per Day: 1.5 Cigarettes Per Day: 30.0 Years Smoked: 44 e-Cigarette/Vaping Use: Never Used Current occupational status: disabled Female Reproductive History Menstrual Age of Menarche: 16 Questionnaire PHQ-9 Over the last 2 weeks, how often have you been bothered by any of the following problems? 1. Little interest or pleasure in doing things: not at all 2. Feeling down, depressed, or hopeless: not at all 3. Trouble falling or staying asleep, or sleeping too much: not at all 4. Feeling tired or having little energy: several days 5. Poor appetite or overeating: several days 6. Feeling bad about yourself - or that you are a failure or have let yourself or your family down: not at all 7. Trouble concentrating on things, such as reading the newspaper or watching television: several days 8. Moving or speaking so slowly that other people could have noticed. Or the opposite - being so fidgety or restless that you have been moving around a lot more than usual: not at all 9. Thoughts that you would be better off or of hurting yourself in some way: not at all Total score: 3 Source: Developed by Drs. Addison Zamorano, Lauren Jones, Ricky Hamilton and colleagues, with an educational sandra from [employer]. Thrive Questionnaire I am a: Patient What is your living situation today?: I have a steady place to live Within the past 12 months, did the food you bought not last and you didn't have the money to get more?: Never true Within the past 12 months, did you worry whether your food would run out before you got money to buy more?: Never true Do you have trouble paying for medicines?: No Do you have trouble getting transportation to medical appointments?: No Do you have trouble paying your heating and electricity bill?: No Do you have trouble taking care of your child, family member or friend?: No Do you have trouble with day-to-day activities such as bathing, preparing meals, shopping, managing finances, etc.?: No Are you currently unemployed and looking for a job?: No Are you interested in more education?: No THRIVE Score: 0 AUDIT C Alcohol Use Questionnaire (AUDIT-C) 1. How often do you have a drink containing alcohol?: Never 3. How often do you have six or more drinks on one occasion?: Never Total Score: 0 TRACEY-7 AMB Questionnaire TRACEY-7 Date TRACEY - 7 assessed: 06/19/25 Feeling nervous, anxious, or on edge: 1 = Several days Worrying too much about different things: 1 = Several days Trouble relaxin = Several days Becoming easily annoyed or irritable: 1 = Several days Feeling afraid as if something awful might happen: 1 = Several days Source: Developed by Drs. Addison Zamorano, Lauren Jones, Ricky Hamilton and colleagues, with an educational sandra from [employer]. Physical exam (Primary Care) Vital Signs: Last Vital Signs Temp 98.3 F 06/19/25 11:17 Pulse 70 06/19/25 11:17 Resp 16 06/19/25 11:17 BP 110/70 06/19/25 11:17 Pulse Ox 95 06/19/25 11:17 BMI result Body Mass Index 25.3 Tobacco/Smoking Status: Tobacco use Status Tobacco use date assessed 06/19/25 06/19/25 08:11 Patient Tobacco Use Status Current everyday Tobacco 06/19/25 11:38 e-Cigarette/Vaping Use Never Used 06/19/25 11:38 PHQ-9: PHQ-9 Score PHQ-9: Total score 3 06/19/25 16:16 Coding Level of Care Code Est Pt Level 4 (46436) Complex EM visit Add On G2211 Diagnoses Therapeutic drug monitoring Z51.81 Primary hypertension I10 Hypertension type: primary hypertension Asthma, unspecified asthma severity, unspecified whether complicated, unspecified whether persistent J45.909 Asthma severity: unspecified severity Asthma persistence: unspecified Asthma complication type: unspecified Chronic obstructive pulmonary disease, unspecified COPD type J44.9 COPD type: unspecified COPD Restless legs syndrome G25.81 Depression, unspecified depression type F32.A Depression Type: unspecified Assessment & Plan Assessment & Plan (1) Therapeutic drug monitoring: Code(s): Z51.81 - Encounter for therapeutic drug level monitoring Category: Medical Plan: tox screen obtained, contract signed (2) HTN (hypertension): Code(s): I10 - Essential (primary) hypertension Category: Medical Qualifiers: Hypertension type: primary hypertension Qualified Code(s): I10 - Essential (primary) hypertension (3) Asthma: Code(s): J45.909 - Unspecified asthma, uncomplicated Category: Medical Qualifiers: Asthma severity: unspecified severity Asthma persistence: unspecified Asthma complication type: unspecified Qualified Code(s): J45.909 - Unspecified asthma, uncomplicated (4) COPD (chronic obstructive pulmonary disease): Code(s): J44.9 - Chronic obstructive pulmonary disease, unspecified Category: Medical Qualifiers: COPD type: unspecified COPD Qualified Code(s): J44.9 - Chronic obstructive pulmonary disease, unspecified (5) Restless legs syndrome: Code(s): G25.81 - Restless legs syndrome Category: Medical (6) Depression: Code(s): F32.A - Depression, unspecified Category: Medical Qualifiers: Depression Type: unspecified Qualified Code(s): F32.A - Depression, unspecified Plan - Schedule steroid injections with pain management - Pulmonology referral - Continue smoking cessation - get toxicology screen Orders: Orders Cannabinoid Screen Urine Today Z51.81 - Encounter for therapeutic drug level monitoring Cocaine Screen Urine Today Z51.81 - Encounter for therapeutic drug level monitoring Opiate Screen Urine Today Z51.81 - Encounter for therapeutic drug level monitoring Comprehensive Met. Panel Today I10 - Essential (primary) hypertension, J45.909 - Unspecified asthma, uncomplicated Benzodiazepines Screen Urine Today Z51.81 - Encounter for therapeutic drug level monitoring Alcohol, Ethyl Urine Screen Today Z51.81 - Encounter for therapeutic drug level monitoring Complete Blood Count Auto Diff Today I10 - Essential (primary) hypertension, J45.909 - Unspecified asthma, uncomplicated Referrals Pulmonology Referral J45.909 - Unspecified asthma, uncomplicated Medications: New pramipexole 0.25 mg PO TID 270 tabs 3RF losartan 25 mg PO DAILY 90 tabs 3RF amlodipine 10 mg PO DAILY 90 tabs 3RF ezetimibe 10 mg PO DAILY 90 tabs 3RF montelukast 10 mg PO BEDTIME 90 tabs 3RF fluticasone propionate 50 mcg/actuation 2 sprays intranasal QAM 16 grams 11RF cetirizine 10 mg PO DAILY 90 tabs 3RF cxtsgwpqni-hstweacp-afbgskxhdr 160-9-4.8 mcg/actuation (Breztri Aerosphere) 2 inhalations inhalation BID 10.7 grams 0RF Changed From omeprazole 1 cap PO BID To omeprazole 20 mg PO BID 180 caps 3RF
[2025-06-19 11:17] VITALS: BP 110/70; PULSE 70; RESP 16; TEMP 36.8; O2SAT 95; BMI 25.3
--- OUTSIDE RECORDS SUMMARY | 2025-06-19 14:06 | XMS_ITS | Data Portability ---
Author Organization [place] [facility] Address [address] [place] [address] Care Team Providers Care Sales Office Administrator Name Role Phone SHAGGY MUHAMMAD Primary Care Provider [phone] Assessment Encounter Date Assessment Date Assessment LastModified [...] rhythm. Plan/Discussion: Patient transferred via EMS to [facility] for evaluation and management. Patient instructed [...] recorded. Imaging XR, chest, 2 view 2019 [facility] ([facility] [address], [place], [address], 0 11:29:23 Medication Orders prednison e 10 mg tablet 2019 [employer] Not available 0 16:58:23 prednison e 10 mg tablet 2019 [email or web address] Not available 0 16:58:23 doxycycli ne hyclate 100 mg capsule 2019 INTERFACE Not available 0 18:28:55 doxycycli ne hyclate 100 mg capsule 2019 [email or web address] Not available 0 16:58:23 Patient TargetsNo targets recorded. Patient Instructions Encounter Date Encounter Id Patient Instructions Last Modified By Organization Details Last Modified Time 09/05/2019 [id number] Doxycycline 1 pill twice daily for 10 [...] KATELYN YEPEZ M.D. 11:12: 11 AM EST. terry [facility] ([facility]) [address] [facility], [place], [address], 09/06/2019 21:21:56 09/14/19 20 elect kulwantar diogr am No observ ation record ed. [...] 11:12:11 AM EST. DERREK SIMPSON NP [address] [place], [address], [place] [facility] 09/06/2019 21:21:56 Procedures Surgical History Date Name Laterality Status Provider Name and Address Organization Details Recorded Time 09/05/19 ECG Interpretation - completed [facility] [address], [place], [address], [place] [facility] 09/05/2019 18:20:10 Imaging Results [...] 18 /min 132/78 mm[Hg] Not Available [facility] 0 17:59:42 Date Recorded Body temperature Respiratory rate Heart rate Oxygen saturation Oxygen saturation in Arterial blood by Pulse oximetry Oxygen saturation Oxygen saturation in Arterial blood by Pulse oximetry Systolic And Diastolic Provider Name and Address Organization Details Last Updated DateTime 0 97.4 [degF] 26 /min 66 /min 98 % 98 % 92 % 92 % 118/60 mm[Hg] Not Available [facility] 0 09:56:51 Social History Question Answer Notes LastModified by Organizat ion Details LastModified Time Tobacco Smoking Status Current Every Day Smoker [facility] [address], [place], [address], [place] [facility] 09/05/2019 18:03:03 Do You [...] available 09/05 18:02:26 Medical History Condition Response Coronary Artery Disease N COPD Y Depression N Diabetes N Cancer N Stroke N Asthma Y High Cholesterol N Pulmonary Embolism N Hypertension Y Kidney Disease N Gynecological HistoryNo gynecological history recorded. Obstetrics History GPAL:G 0 P 0 0 0 0 Past Encounters Encounter ID Performer Location Encounter Start Date Encounter Closed Date Diagnosis/Indication Diagnosis SNOMED-CT Code Diagnosis ICD10 Code Diagnosis IMO Codes Diagnosis Note [id number] [facility] [address] [place] [address] 09/05/2019 17:52:23 09/06/2019 11:52:37 Acute exacerbation of asthma 351006718 J45.901 Acute uppe r respiratory infection 85463167 J06.9 [id number] [facility] [address] [place] [address] 09/09/2019 09:52:06 09/10/2019 12:05:10 Dyspnea 593155628 R06.00 Health Concerns Section Related Observation LastModified by Organization Detai ls LastModified Time None Recorded Concern Status LastModified by Organization Details LastModified Time None Recorded Advance Directives Directive N: Payers Insurance Date Sequence Insurance Name Policy Number Policy Pink Covered Member ID Pink Member ID Guarantor Name 09/05/2019 1 *SELF PAY* Sharon Duranson [id number] Sharon Duranson 09/06/2019 1 [place] [employer] Sharon Jaimes [id number] Sharon Theodore 09/24/2019 2 [place] Sharon Jaimes [id number] Sharon Jaimes 09/14/2019 1 [place] [facility] Sharon Jaimes [id number] Sharon Jaimes Notes Date Note Type Note Provider Name and Address Organization Details Recorded Time 09/05/2019 text/html 59-year-old female, with history of asthma and COPD, presents for evaluation of shortness of breath. Reports went to [facility] on 08/22 and did have a bit of cough when she left. States once there, developed shortness of breath like she couldn't move any air . Reports cold sweats, ear pressure. Denies sinus congestion, sore throat, palpitations. States does not know about chest pain. Reports was seen 08/27 in [facility] and diagnosed with URI and given 3 days of prednisone, and azithromycin. Reports using Flovent, albuterol as prescribed and last albuterol usage approximately 4 hours prior to exam. [facility] [address], [place], [address], [place] [facility] 09/05/2019 18:53:52 09/09/2019 text/html 59-year-old female presents for evaluation shortness of breath. Patient [...] some of her symptoms started her arrival. has been taking doxycycline and prednisone as prescribed but does not note much improvement in symptoms over these last 4 days. States gets extremely short of breath with any exertion. Denies chest pain, palpitations, dizziness. She states took albuterol nebulizer just prior to our arrival today. has been monitoring her vitals and reports O2 was 94% on room air prior to use of albuterol. There does not appear to be any improvement in O2 sats after albuterol usage and patient he sat down to 92% on room air with exertion. [facility] [address], [place], [address], [place] [facility] 09/09/2019 10:43:17 OBGyn Episode No OBEpisode recorded.
--- OUTSIDE RECORDS SUMMARY | 2025-06-19 14:06 | XMS_ITS | Encounter Summary ---
Author Organization [employer] Address [address] [place] [address] [address] [place] [address] Care Team Providers Care Ring Barker Operator Name Role Phone Unavailable Primary Care Provider Unavailabl e Encounter Details Date Type Department Care Team (Late st Contact Info) Description 06/24/2023 Abstract [facility] MEDICINE [address] [place] [id number] Sameera Guo Social History Tobacco Use Types Packs/Day Years Used Date Smoking Tobacco: Never Assessed Comments Unknown Sex and Gender Information Value Date Recorded Sex Assigned at Female 06/21/2022 10:15 AM EDT Legal Sex Female 10:15 AM EDT Gender Identity Female 06/21/2022 10:15 AM EDT Sexual Orientation Straight 06/21/2022 10 :15 AM EDT documented as of this encounter Plan of Treatment Not on file documented as of this encounter Visit Diagnoses Not on filedocumented in this encounter
--- OUTSIDE RECORDS SUMMARY | 2025-06-19 14:06 | XMS_ITS | Encounter Summary ---
Author Organization [facility] Address [address] [place] [id number] Care Team Providers Care Heater Helper Name Role Phone Kaylah Posadas MD Primary Care Provider Reason for Visit * Reason Comments Med Refill Encounter Details Date Type Department Care Team ([facility] st Contact Info) Description 09/19/2022 Refill [facility] MEDICINE [address], [place] [phone] Kaylah Posadas MD [address] [place] [address] Bipolar affective disorder in remission (CMS/HCC) (Primary Dx); Essential (primary) hypertension Social History Tobacco Use Types Packs/Day Years [...] documented as of this encounter Visit Diagnoses Diagnosis Bipolar affective disorder in remission (CMS/HCC)- Primary Essential (primary) hypertension Unspecified essential hypertension documented in this encounter Care Teams Heater Helper Relationship Specialty Start Date End Date Kaylah Posadas MD [address] [place] [address] PCP - General Internal Medicine 08/26/11 06/23/23 documented as of this encounter
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
--- OUTSIDE RECORDS SUMMARY | 2025-06-19 14:06 | XMS_ITS | Clinical Summary ---
Author Organization [employer] Address [address] [place] [address] 7 [place] [address] Care Team Providers Care Application Dba Name Role Phone Unavailable Primary Care Provider [...] 01/25/2022, 11/21, 08/10/2017 COVID-19 Vaccine ( season) 2025 07/09/2021, 12/16/2020, 11/18/2020 Influenza Vaccine (#1) 2025 [...] 9:56 AM EST) Clinical Information: None given [facility] COMMENT SEE COMMENT FOUNDATI ON [...] along with historic and current clinical information. Rn Complex Care: SEE COMMENT [facility] Comment: HJP, CT(ASCP) CT screening location: [place] [address] HPV nRNA E6/E7 Not Detected Not Detected [facility] Comment: Methodology: Lumber Planer-Mediated Amplification This assay detects E6/E7 viral messenger RNA (mRNA) from 14 high-risk HPV types (16,18,31,33,35,39,45,51,52,56,58,59,66,68). The analytical performance characteristics of this assay have been determined by [employer]. The modifications have not been cleared or approved by the FDA. This assay has been validated pursuant to the CLIA regulations and is used for clinical purposes. For additional information, please refer to http://education.[employer]/UMA640n3 (This link if provided for information/ educational purposes only.) Infection Shift in vaginal ryan suggestive of bacterial vaginosis. [facility] Interpretation/Re sult: Negative for intraepithelial lesion or malignancy. [facility] LMP: NONE GIVEN FOUNDATIO N [...] Corey CNM LAB PATHOLOGY ORDERABLES Final Result [facility] [address] from Last 3 Months or Most Recently Relevant to Health Maintenance
== END 2025-06-19 12:58 | disposition home or self-care (01) ==
LOC: HO.HMCHD 11:10
PROVIDERS: PCP Internal Medicine; Visit Provider Internal Medicine
DX: Z51.81 Encounter for therapeutic drug level monitoring (principal); I10 Essential (primary) hypertension; J45.909 Unspecified asthma, uncomplicated; J44.9 Chronic obstructive pulmonary disease, unspecified; G25.81 Restless legs syndrome; F32.A Depression, unspecified

== ENCOUNTER 2025-06-19 12:30 | Outpatient (REF) | payer MEDICARE, MEDICAID, SELFPAY ==
[2025-06-19 13:23] LABS: MANUAL DIFF FLAG NO
[2025-06-19 13:26] LABS: Cannabinoid Screen Urine Not Detected (Not Detect)
[2025-06-19 13:40] LABS: Hematocrit 43.8 % (37.0-47.0); Hemoglobin 15.0 g/dl (12.0-16.0); Imm Gran Abs Auto 0.02 X10*3/uL (0.00-0.03); Imm Gran Pct Auto 0.3 % (0.0-0.4); Lymphocytes Absolute Auto 2.1 X10*3/uL (1.2-4.9); Mean Corpuscular HGB Conc 34.2 g/dl (31.0-35.0); Mean Corpuscular Hemoglobin 32.6 pg (27.0-33.0); Mean Corpuscular Volume 95.2 fL (80.0-98.0); NRBC Abs Auto 0.000 X10*3/uL (0.0-0.012); NRBC Pct Auto 0.0 /100WBC (0.0-0.2); Platelet Count 244 X10*3/uL (160-400); Red Blood Count 4.60 X10*6/uL (4.20-5.50); White Blood Count 6.6 X10*3/uL (4.8-10.8)
[2025-06-19 13:54] LABS: Alanine Aminotransferase 23 U/L (0-31); Albumin Level 4.7 g/dL (3.5-5.0); Alkaline Phosphatase 98 U/L (39-117); Anion Gap 9 (12-20); Aspartate Amino Transferase 26 U/L (5-31); Blood Urea Nitrogen 14 mg/dL (9-16); Calcium 9.2 mg/dL (8.4-10.2); Carbon Dioxide 26 mmol/L (22-29); Chloride 107 mmol/L (96-108); Estimated Glomerular Filt Rate > 60; Potassium 3.4 mmol/L (3.3-5.1); Sodium 139 mmol/L (135-145); Total Protein 7.4 g/dL (6.5-8.0)
[2025-06-21 08:48] LABS: Alcohol, Ethyl Urine Screen NEGATIVE
== END 2025-06-19 12:31 | disposition home or self-care (01) ==
LOC: HO.10HDL 12:30
PROVIDERS: Visit Provider Internal Medicine
DX: I10 Essential (primary) hypertension (principal); M48.02 Spinal stenosis, cervical region; J44.9 Chronic obstructive pulmonary disease, unspecified; G89.29 Other chronic pain; F41.9 Anxiety disorder, unspecified; F32.A Depression, unspecified; G25.81 Restless legs syndrome; Z79.891 Long term (current) use of opiate analgesic; Z51.81 Encounter for therapeutic drug level monitoring; Z79.899 Other long term (current) drug therapy
CPT/HCPCS: 80053; 80307; 85025; 96127; 99212

== ENCOUNTER 2025-07-23 09:15 | Outpatient (AMB) | payer MEDICARE, MEDICAID, SELFPAY ==
--- NOTE | 2025-07-23 09:15 | A.OFFPC_ITS ---
Vital Signs 07/23/25 09:17 Height 5 ft 4.5 in Weight 155 lb 6 oz BMI 26.3 BP 110/70 Blood Pressure Location Lt brachial Position Sitting Respiration 16 Pulse 68 Pulse Source Pulse Oximeter Temp 97.1 F Temp Source Temporal Artery Scan Pulse Oximetry (%) 96 Oxygen Delivery Method Room Air Intake Visit Reasons: right eye redness (stye) Audio Visual Production Specialist Required: No Accompanied by: Self / Same As Patient Allergies baclofen (BACLOFEN) Allergy (Unknown, Verified 07/23/25 09:16) felt wierd Did not work morphine (MORPHINE) Allergy (Unknown, Verified 07/23/25 09:16) THROAT CLOSES, anaphylaxis hydrocodone (From VICODIN) Adverse Reaction (Unknown, Verified 07/23/25 09:16) N/V, palpitations Tobacco use date assessed: 06/19/25 Dental Screening Dental Screen Date: 06/19/25 HPI HPI Comments History of Present Illness Details The patient is a 64 year old female presenting for evaluation of an eye complaint. Internal Hordeolum and Blepharitis: The patient reports the onset of eye symptoms three days ago, characterized by pain on the bottom of the eyelid rated at a 5-6 out of 10, a gritty sensation below the eye, and a visible small white spot inside the lid. There was a small amount of drainage initially, but no change in visual acuity has been noted. The patient also notes an area of increased redness was present below the eyelid for the first two days but has since improved. The patient started taking doxycycline the previous night, has had three doses so far, and has been applying warm compresses, with no significant improvement noted yet. Cervical Spinal Stenosis: The patient has a history of moderate to severe spinal narrowing at levels C5, C6, and C7. An epidural injection is scheduled for later today with [facility] pain management. [facility] Medical History (Updated 07/23/25 @ 22:02 by Dixie Brady MD) Hordeolum Depression Restless legs syndrome Therapeutic drug monitoring Abnormality of right breast on screening mammogram COPD (chronic obstructive pulmonary disease) Mild aortic regurgitation Hiatal hernia Hx of hepatitis C DDD (degenerative disc disease), thoracic DDD (degenerative disc disease), cervical Smoker Asthma Agoraphobia Anxiety Bipolar 1 disorder, depressed Constipation GERD (gastroesophageal reflux disease) HTN (hypertension) Surgical History (Updated 06/17/25 @ 17:24 by Lay John) History of cardiac cath Hx of hysterectomy History of breast augmentation History of ankle surgery Hx of colonoscopy (~07/01/20) History of esophagogastroduodenoscopy (EGD) Social History Housing: House Are you a primary resident care aide to a significant other at home: No Do you presently have visiting nurse or other home services: No Patient Tobacco Use Status: Current everyday Tobacco user Cigarette Packs Per Day: 1.5 Cigarettes Per Day: 30.0 Years Smoked: 44 Packs Per Year: 66 Packs per year/per ci.00 e-Cigarette/Vaping Use: Never Used Current occupational status: disabled Female Reproductive History Menstrual Age of Menarche: 16 Questionnaire PHQ-9 Over the last 2 weeks, how often have you been bothered by any of the following problems? 1. Little interest or pleasure in doing things: several days 2. Feeling down, depressed, or hopeless: several days 3. Trouble falling or staying asleep, or sleeping too much: several days 4. Feeling tired or having little energy: several days 5. Poor appetite or overeating: several days 6. Feeling bad about yourself - or that you are a failure or have let yourself or your family down: not at all 7. Trouble concentrating on things, such as reading the newspaper or watching television: not at all 8. Moving or speaking so slowly that other people could have noticed. Or the o pposite - being so fidgety or restless that you have been moving around a lot more than usual: not at all 9. Thoughts that you would be better off or of hurting yourself in some way: not at all Total score: 5 Depression Screening Interpretation: Positive Depression Screening Done: Yes 63481 - PHQ-9 Billing: Yes Source: Developed by Drs. Addison Zamorano, Lauren Jones, Ricky Hamilton and colleagues, with an educational sandra from [employer]. AUDIT C Alcohol Use Questionnaire (AUDIT-C) 1. How often do you have a drink containing alcohol?: Never 3. How often do you have six or more drinks on one occasion?: Never Total Score: 0 TRACEY-7 AMB Questionnaire TRACEY-7 Date TRACEY - 7 assessed: 10/29/25 Source: Developed by Drs. Addison Zamorano, Lauren Jones, Ricky Hamilton and colleagues, with an educational sandra from [employer]. Review of Systems Narrative Review of Systems - Eyes: Reports pain on the bottom of the eyelid (5-6/10), a gritty sensation below the eye, and a visible white spot inside the lid. - Eyes: Denies any change in visual acuity. - Respiratory: Reports recent breathing issues/cold have resolved. - Neurological: Reports neck issues consistent with severe cervical spinal stenosis. Physical exam (Primary Care) Vital Signs: Last Vital Signs Temp 97.1 F 07/23/25 09:17 Pulse 68 07/23/25 09:17 Resp 16 07/23/25 09:17 BP 110/70 07/23/25 09:17 Pulse Ox 96 07/23/25 09:17 Oxygen Delivery Method Room Air 07/23/25 09:17 BMI result Body Mass Index 26.3 Tobacco/Smoking Status: Tobacco use Status Tobacco use date assessed 06/19/25 07/23/25 09:25 Patient Tobacco Use Status Current everyday Tobacco 07/23/25 09:25 e-Cigarette/Vaping Use Never Used 07/23/25 09:25 PHQ-9: PHQ-9 Score PHQ-9: Total score 5 07/23/25 09:25 Depression Screening Interpretation: Positive Narrative Physical Exam - Visual acuity: Grossly intact and equal bilaterally on examination. - Eyes: Extraocular movements are intact. - Eyes: The lower eyelid shows inflammation and redness. - Eyes: A small internal hordeolum is noted on the inside of the right lower lid. - Eyes: Blepharitis is present along the lid line. - Respiratory: Lungs are slightly coarse to auscultation with good air movement and no wheezing. Coding Level of Care Code Est Pt Level 3 (36927) Complex visit Add On G2211 Diagnoses Hordeolum internum of right lower eyelid H00.022 Hordeolum type: internum Laterality: right Eyelid: lower Additional Codes PHQ-9 - 04292 - PHQ-9 Billing: Yes ([id number]) Time Spent (min) 23 Comment chart review, document prep, visit time, patient education Assessment & Plan Assessment & Plan (1) Hordeolum: Code(s): H00.019 - Hordeolum externum unspecified eye, unspecified eyelid Category: Medical Qualifiers: Hordeolum type: internum Laterality: right Eyelid: lower Qualified Code(s): H00.022 - Hordeolum internum right lower eyelid Plan Assessment and Plan 1. Internal Hordeolum and Blepharitis The patient has an inflammatory process of the eyelid including a small internal hordeolum and associated blepharitis. The condition is localized, and vision is not affected. The plan is to continue the 7-day course of doxycycline, continue warm compresses, and avoid rubbing the eye. The patient will update office on Tuesday to assess progress, at which point the antibiotic may be extended or changed. The patient was instructed to seek urgent ophthalmology care if pain increases, pain occurs with eye movement, or if there is a gritty sensation within the eye itself. 2. Cervical Spinal Stenosis The patient has a known history of spinal stenosis and is scheduled for an epidural injection today for this condition at [facility]. 3. Ophthalmologic Care The patient expressed dissatisfaction with their current eye doctor and plans to re-establish care with a previous provider at [facility]. Plan - Continue doxycycline for a 7-day course. - Continue with warm compresses to the affected eye. - The patient to provide a clinical update by Tuesday; the antibiotic course may be extended or changed if there is no improvement. - The patient was advised to seek urgent ophthalmologic evaluation if pain worsens, pain occurs with eye movement, or if a gritty sensation develops within the eye. Discussion Notes I discussed my assessment of an internal hordeolum (stye) with associated blepharitis with the patient. I explained the plan to continue doxycycline and warm compresses. We reviewed warning signs that would necessitate an urgent ophthalmology visit, such as pain with eye movement or a new gritty feeling within the eyeball, which could suggest a corneal issue. We agreed that the patient will update me on their condition by Tuesday, and I may need to extend the antibiotic course or change to a different one if needed. Patient Instructions - Continue taking the doxycycline antibiotic for the full 7-day course. - Continue to apply warm compresses to your eye. - Do not rub your eye or apply lotions to the area. - Please send me an update on how your eye is feeling by Tuesday. - Go to an eye doctor immediately if the pain gets worse, if it hurts to move your eye, or if you feel a gritty sensation inside the eye itself.
[2025-07-23 09:17] VITALS: BP 110/70; PULSE 68; RESP 16; TEMP 36.2; O2SAT 96; BMI 26.3
--- OUTSIDE RECORDS SUMMARY | 2025-07-23 09:47 | XMS_ITS | Encounter Summary ---
Author Organization [facility] Address [address] [place] [address] Care Team Providers Care Caption Writer Name Role Phone Kaylah Posadas MD Primary Care Provider Reason for Visit * Reason Comments Med Refill Encounter Details Date Type Department Care Team ([facility] st Contact Info) Description 09/19/2022 Refill [facility] [address] [place], [place] [phone] Kaylah Posadas MD [address] [place] [address] Bipolar affective disorder in remission (CMS/HCC) (Primary [...] hypertension documented in this encounter Care Teams Caption Writer Relationship Specialty Start Date End Date Kaylah Posadas MD [address] [place] [address] PCP - General Internal Medicine 08/26/11 06/23/23 documented as of this encounter
--- OUTSIDE RECORDS SUMMARY | 2025-07-23 09:47 | XMS_ITS | Clinical Summary ---
Author Organization [employer] Address [address] [place] [address] 7 [place] [address] Care Team Providers Care Visual Merchandising Specialist Name Role Phone Unavailable Primary Care Provider [...] 9:56 AM EST) Clinical Information: None given [facility] COMMENT SEE COMMENT FOUNDATI ON [...] along with historic and current clinical information. Electrical And Instrument Mechanic: SEE COMMENT [facility] Comment: HJP, CT(ASCP) CT screening location: [place] [address] HPV nRNA E6/E7 Not Detected Not Detected [facility] Comment: Methodology: Freight Rate Analyst-Mediated Amplification This assay detects E6/E7 viral messenger RNA (mRNA) from 14 high-risk HPV types (16,18,31,33,35,39,45,51,52,56,58,59,66,68). The analytical performance characteristics of this assay have been determined by [employer]. The modifications have not been cleared or approved by the FDA. This assay has been validated pursuant to the CLIA regulations and is used for clinical purposes. For additional information, please refer to http://education.[employer]/YQR743i4 (This link if provided for information/ educational purposes only.) Infection Shift in vaginal ryan suggestive of bacterial vaginosis. [facility] Interpretation/Re sult: Negative for intraepithelial lesion or malignancy. [facility] LMP: NONE GIVEN FOUNDATIO N [...] Corey CNM LAB PATHOLOGY ORDERABLES Final Result [facility] [address] from Last 3 Months or Most Recently Relevant to Health Maintenance
--- OUTSIDE RECORDS SUMMARY | 2025-07-23 09:47 | XMS_ITS | Encounter Summary ---
Author Organization [facility] Address [address] [place] [address] Care Team Providers Care Production Clerk Name Role Phone Kaylah Posadas MD Primary Care Provider [phone]- [phone] Encounter Details Date Type Department Care Team (Latest Contact Info) Description 01/07/2021 Abstract [facility] CONVERSIONS Dental, Provider, DDS Social History [...] on filedocumented in this encounter Care Teams Production Clerk Relationship Specialty Start Date End Date Kaylah Posadas MD [address] [place] [address] PCP - General Internal Medicine 08/26/11 06/23/23 documented as of this encounter
--- OUTSIDE RECORDS SUMMARY | 2025-07-23 09:47 | XMS_ITS | Encounter Summary ---
Author Organization [employer] Address [address] [place] [address] 7 [place] [address] Care Team Providers Care Distributor Operator Name Role Phone Unavailable Primary Care Provider Unavailabl e Encounter Details Date Type Department Care Team (Late st Contact Info) Description 06/24/2023 Abstract [facility] [address] [place] [id number] Sameera Guo Social History Tobacco Use Types [...]
--- OUTSIDE RECORDS SUMMARY | 2025-07-23 09:47 | XMS_ITS | Data Portability ---
Author Organization [place] [facility] Address [address] [place] [id number] Care Team Providers Care Tire Wrapper Name Role Phone SHAGGY MUHAMMAD Primary Care Provider [phone] Assessment Encounter Date Assessment Date Assessment LastModified [...] rhythm. Plan/Discussion: Patient transferred via EMS to [facility] for evaluation and management. Patient instructed [...] recorded. Imaging XR, chest, 2 view 2019 [facility] ([facility]), [address], [place], [address], 0 11:29:23 Medication Orders prednison e 10 [...] By Organization Details Last Modified Time 09/05/2019 560000 Doxycycline 1 pill twice daily for 10 [...] YEPEZ M.D. 11:12: 11 AM EST. terry [facility] ([facility]) [address] [facility], [place], [address], 09/06/2019 21:21:56 09/14/19 20 elect kulwantar diogr [...] 11:12:11 AM EST. DERREK SIMPSON NP [address] [place], [address], [place] [facility] 09/06/2019 21:21:56 Procedures Surgical History Date Name Laterality Status Provider Name and Address Organization Details Recorded Time 09/05/19 ECG Interpretation - completed BREND[place] HOPE [address], [place], [address], [place] [facility] 09/05/2019 18:20:10 Imaging Results [...] Vitals Date Recorded Heart rate Oxygen saturation Body temperature Respiratory rate Systolic And Diastolic Provider Name and Address Organization Details Last Updated DateTime 0 60 /min 98 % 99.6 [degF] 18 /min 132/78 mm[Hg] Not Available [facility] 0 17:59:42 Date Recorded Body temperature Respiratory rate Heart rate Oxygen saturation Oxygen saturation Systolic And Diastolic Provider Name and Address Organization Details Last Updated DateTime 0 97.4 [degF] 26 /min 66 /min 98 % 92 % 118/60 mm[Hg] Not Available [facility] 0 09:56:51 Social History Question Answer Notes LastModified by Organizat ion Details LastModified Time Tobacco Smoking Status Current Every Day Smoker BRENDAN HOPE [address], [place], [address], [place] [facility] 09/05/2019 18:03:03 Do You [...] Artery Disease N COPD Y Depression N Cancer N Stroke N High Cholesterol N Kidney Disease N Diabetes N Asthma Y Pulmonary Embolism N Hypertension Y Gynecological HistoryNo gynecological history recorded. Obstetrics History GPAL:G 0 P 0 0 0 0 Past Encounters Encounter ID Performer Location Encounter Start Date Encounter Closed Date Diagnosis/Indication Diagnosis SNOMED-CT Code Diagnosis ICD10 Code Diagnosis IMO Codes Diagnosis Note [id number] [facility] [address] [place] [address] 09/05/2019 17:52:23 09/06/2019 11:52:37 Acute exacerbation of asthma 989935339 J45.901 Acute uppe r respiratory infection 76490125 J06.9 [id number] [facility] [address] [address] 09/09/2019 09:52:06 09/10/2019 12:05:10 Dyspnea 371566161 R06.00 Health Concerns Section Related Observation LastModified by Organization Detai ls LastModified Time None Recorded Concern Status LastModified by Organization Details LastModified Time None Recorded Advance Directives Directive N: Payers Insurance Date Sequence Insurance Name Policy Number Policy Pink Covered Member ID Pink Member ID Guarantor Name 09/05/2019 1 *SELF PAY* Sharon Jaimes [id number] Sharon Jaimes 09/06/2019 1 [place] [employer] Sharon Jaimes [id number] Sharon Jaimes 09/24/2019 2 [place] [facility] Sharon Jaimes [id number] Sharon Jaimes 09/14/2019 1 [place] [employer] Sharon Jaimes [id number] Sharon Jaimes Notes Date Note Type Note Provider Name and Address Organization Details Recorded Time 09/05/2019 text/html 59-year-old female, with history of asthma and COPD, presents for evaluation of shortness of breath. Reports went to [facility] on 08/22 and did have a bit of cough when she left. States once there, developed shortness of breath like she couldn't move any air . Reports cold sweats, ear pressure. Denies sinus congestion, sore throat, palpitations. States does not know about chest pain. Reports was seen 08/27 in [facility] and diagnosed with URI and given 3 days of prednisone, and azithromycin. Reports using Flovent, albuterol as prescribed and last albuterol usage approximately 4 hours prior to exam. BREND[place] HOPE, [place], [address], [place] [facility] 09/05/2019 18:53:52 09/09/2019 text/html [...] nebulizer just prior to our arrival today. [facility] has been monitoring her vitals and reports O2 was 94% on room air prior to use of albuterol. There does not appear to be any improvement in O2 sats after albuterol usage and patient he sat down to 92% on room air with exertion. BREND[place] HOPE, [place], [address], [place] [facility] 09/09/2019 10:43:17 OBGyn Episode No OBEpisode recorded.
== END 2025-07-23 09:45 | disposition home or self-care (01) ==
LOC: HO.HMCHD 09:15
PROVIDERS: PCP Internal Medicine; Visit Provider Internal Medicine
DX: H00.022 Hordeolum internum right lower eyelid (principal)

== ENCOUNTER → 2025-07-23 09:15 | Outpatient (BNVA) | payer MEDICARE, MEDICAID, SELFPAY | PROVIDERS: PCP Internal Medicine; Visit Provider Internal Medicine | DX: H00.022 Hordeolum internum right lower eyelid (principal); Z13.31 Encounter for screening for depression; F17.210 Nicotine dependence, cigarettes, uncomplicated | CPT/HCPCS: 96127; 99212 ==